=== PATIENT | female | born 1950 | race Caucasian/White ===

== ENCOUNTER 2018-11-22 12:50 | Emergency (ER) | payer MEDICARE ==
[~2018-11-22] VITALS: Ht 162.6 cm; Wt 99.8 kg
[~2018-11-22 12:50] MED LIST: CYCL-97; DULO30CA; DULO30CA48 PO; HYDR-4196 PO; HYDR-623; LEVO125T6; LEVO300T2 PO; LOSA100T16; LOSA100T3 PO; METO100T6 PO; MORP60CA18 PO; MORP90CP PO; MTP50T; NF-CARB200; NF-LOVAZAC; POTA25TA7 PO; SIMV40TA2; SPIR50TA27; TORS20TA3 PO; [UNRECOGNIZED DRUG - CODE]
[2018-11-22 13:33] LABS: BASOPHILS # (AUTO) 0.1 10^3/uL (0.0-0.1); BASOPHILS % (AUTO) 1 % (0-10); EOSINOPHILS # (AUTO) 0.2 10^3/uL (0.0-0.3); EOSINOPHILS % (AUTO) 4 % (0-10); HEMATOCRIT 40 % (35-52); HEMOGLOBIN 12.6 G/DL (11.5-16.0); LYMPHOCYTES % (AUTO) 35 % (12-44); MEAN CORPUSCULAR HEMOGLOBIN 27 PG (25-34); MEAN CORPUSCULAR HGB CONC 32 G/DL (32-36); MEAN CORPUSCULAR VOLUME 86 FL (80-99); MEAN PLATELET VOLUME 10.1 FL (7.4-10.4); MONOCYTES # (AUTO) 0.4 X 10^3 (0.0-1.0); MONOCYTES % (AUTO) 7 % (0-12); NEUTROPHILS % (AUTO) 53 % (42-75); PLATELET COUNT 252 10^3/uL (130-400); RED CELL DISTRIBUTION WIDTH 14.7 % (10.0-14.5); WHITE BLOOD COUNT 5.7 10^3/uL (4.3-11.0)
[2018-11-22 13:45] LABS: BILIRUBIN,URINE NEGATIVE (NEGATIVE); COLOR,URINE YELLOW; GLUCOSE, URINE (UA) NEGATIVE (NEGATIVE); KETONES,URINE NEGATIVE (NEGATIVE); LEUKOCYTE ESTERASE ,URINE 3+ (NEGATIVE); NITRITE,URINE NEGATIVE (NEGATIVE); PH,URINE 6 (5-9); PROTEIN,URINE NEGATIVE (NEGATIVE); UROBILINOGEN,URINE NORMAL (NORMAL)
[2018-11-22 13:48] LABS: PROTHROMBIN TIME PATIENT 13.3 SEC (12.2-14.7)
[2018-11-22 13:52] LABS: BACTERIA,URINE MODERATE /HPF; CLARITY,URINE SLIGHTLY CLOUDY; WBC,URINE 25-50 /HPF
--- NOTE | 2018-11-22 14:01 | ED General ---
General Chief Complaint: Facial Problems Stated Complaint: FACIAL SWELLING;OPEN WOUND;POSS INFECTION Nursing Triage Note: Pt presents to the ED via walker with complaints of facial swelling around the eyes and between the nose x 3 days. Pt denies any fever or chills. There is also pitting edema present in both lower extremities. Pt also has a wound to left calf and reports moderate drainage. Nursing Sepsis Screen: No Definite Risk Source of Information: Patient Exam Limitations: No Limitations History of Present Illness Date Seen by Provider: Nov 22, 2018 Time Seen by Provider: 13:10 Initial Comments Here with report of swelling and redness to the face as well as wound to the left calf area. The redness and swelling to the face started at the area between the brows at the top of the nose and now has spread to encompass both eyes and down the nose. Also encroaches on the forehead. Does report pain with that. Denies fever or chills. Also has wound to the left lower extremity medial aspect after scraping her leg when she fell out of bed last week. At that time her legs are quite swollen but they are actually better now. Patient is supposed to be on Lasix to help with the leg swelling but she takes it intermittently due to the need to self catheter and this is cumbersome when she has to take her Lasix. Denies nausea or vomiting. Timing/Duration: 1 Week, Getting Worse Severity: Moderate Associated Systoms: No Chest Pain, No Cough, No Fever/Chills, No Nausea/Vomiting, No Shortness of Air, No Weakness Allergies and Home Medications Allergies Coded Allergies: Penicillins (Verified Allergy, Unknown, 12/13/08) Sulfa (Sulfonamide Antibiotics) (Verified Allergy, Unknown, 12/13/08) Home Medications Duloxetine HCl 30 Mg Capsule.dr, 90 MG PO DAILY, (Reported) Hydrocodone/Acetaminophen 1 Each Tablet, 2 EACH PO Q6H PRN for PAIN, (Reported) Levothyroxine Sodium 300 Mcg Tablet, 300 MCG PO DAILY, (Reported) Losartan Potassium 100 Mg Tablet, 100 MG PO DAILY, (Reported) Metoprolol Succinate 100 Mg Tab.er.24h, 100 MG PO DAILY, (Reported) Morphine Sulfate 60 Mg Cap.er.pel, 60 MG PO DAILY, (Reported) Morphine Sulfate 90 Mg Cpmp.24hr, 90 MG PO HS, (Reported) Potassium Bicarbonate/Cit AC 25 Meq Tablet.eff, 25 MEQ PO DAILY, (Reported) Torsemide 20 Mg Tablet, 20 MG PO DAILY, (Reported) Patient Home Medication List Home Medication List Reviewed: Yes Review of Systems Review of Systems Constitutional: see HPI; No chills, No fever EENTM: see HPI, nose pain; No ear pain, No eye pain Respiratory: No cough, No short of breath Cardiovascular: No chest pain; edema Gastrointestinal: no symptoms reported Genitourinary: see HPI; No pain Musculoskeletal: back pain (chronic), muscle pain Skin: change in color Psychiatric/Neurological: No Symptoms Reported All Other Systems Reviewed Negative Unless Noted: Yes Past Zihhvpk-Qcjixd-Ijcffh Hx Past Med/Social Hx: Reviewed Nursing Past Med/Soc Hx Patient Social History Alcohol Use: Denies Use Recreational Drug Use: No Smoking Status: Current Everyday Smoker Type Used: Cigarettes Recent Foreign Travel: No Contact w/Someone Who Travel: No Recent Infectious Disease Expo: No Immunizations Up To Date Tetanus Booster (TDap): Unknown Date of Pneumonia Vaccine: Mar 15, 2015 Date of Influenza Vaccine: Mar 15, 2015 Past Medical History Surgeries: Yes Orthopedic Respiratory: No Cardiac: Yes Chronic Edema/Swelling, Hypertension Neurological: No Reproductive Disorders: No Genitourinary: Yes Gastrointestinal: Yes Chronic Constipation Musculoskeletal: Yes Chronic Back Pain, Fractures Endocrine: Yes Hypothyroidsim Anxiety Adverse Reaction/Blood Tranf: No Family Medical History Reviewed Nursing Family Hx No Pertinent Family Hx Physical Exam-Suspected Sepsis Physical Exam Vital Signs Vital Signs - First Documented 11/22/18 13:01 Temp 97.4 Pulse 78 Resp 20 B/P (MAP) 167/79 (108) Pulse Ox 97 O2 Delivery Room Air Capillary Refill : Less Than 3 Seconds Blood Pressure Mean: 108 Height, Weight, BMI Height: 5'4.00" Weight: 220lbs. 10.0oz. 99.110111ln; BMI Method:Stated General Appearance: No Apparent Distress, WD/WN HEENT: PERRL/EOMI, Pharynx Normal, Other (wounds as described below) Neck: Non Tender, Supple Respiratory: Lungs Clear, Normal Breath Sounds Cardiovascular: Regular Rate, Rhythm, No Murmur Gastrointestinal: Non Tender, Soft Extremity: Normal Range of Motion, Non Tender Neurologic/Psychiatric: Alert, Oriented x3, No Motor/Sensory Deficits Skin: warm/dry, other (erythema with swelling surrounding the upper face including the nose, bridge and nose, both brows and both eyes. There is excoriations and wound centrally at the bridge of the nose. Also has 12 x 12 cm area of erythema with central 2 x 3 cm area of wound to the left medial calf.) Focused Exam Lactate Level 11/22/18 13:16: Lactic Acid Level 0.90 Lactic Acid Level Laboratory Tests Test 11/22/18 13:16 Lactic Acid Level 0.90 MMOL/L (0.50-2.00) Progress/Results/Core Measures Suspected Sepsis Recent Fever Within 48 Hours: No Infection Criteria Present: None New/Unexplained Altered Menta: No Sepsis Screen: No Definite Risk SIRS Temperature:97.4 Pulse: 78 Respiratory Rate: 20 Laboratory Tests 11/22/18 13:16: White Blood Count 5.7 Blood Pressure 167 /79 Mean: 108 11/22/18 13:16: Lactic Acid Level 0.90 Laboratory Tests 11/22/18 13:16: Creatinine 0.70, INR Comment 1.0, Platelet Count 252, Total Bilirubin 0.3 Results/Orders Lab Results Laboratory Tests Test 11/22/18 13:16 11/22/18 13:35 Range/Units White Blood Count 5.7 4.3-11.0 10^3/uL Red Blood Count 4.63 4.35-5.85 10^6/uL Hemoglobin 12.6 11.5-16.0 G/DL Hematocrit 40 35-52 % Mean Corpuscular Volume 86 80-99 FL Mean Corpuscular Hemoglobin 27 25-34 PG Mean Corpuscular Hemoglobin Concent 32 32-36 G/DL Red Cell Distribution Width 14.7 H 10.0-14.5 % Platelet Count 252 130-400 10^3/uL Mean Platelet Volume 10.1 7.4-10.4 FL Neutrophils (%) (Auto) 53 42-75 % Lymphocytes (%) (Auto) 35 12-44 % Monocytes (%) (Auto) 7 0-12 % Eosinophils (%) (Auto) 4 0-10 % Basophils (%) (Auto) 1 0-10 % Neutrophils # (Auto) 3.0 1.8-7.8 X 10^3 Lymphocytes # (Auto) 2.0 1.0-4.0 X 10^3 Monocytes # (Auto) 0.4 0.0-1.0 X 10^3 Eosinophils # (Auto) 0.2 0.0-0.3 10^3/uL Basophils # (Auto) 0.1 0.0-0.1 10^3/uL Prothrombin Time 13.3 12.2-14.7 SEC INR Comment 1.0 0.8-1.4 Activated Partial Thromboplast Time 39 H 24-35 SEC Sodium Level 141 135-145 MMOL/L Potassium Level 3.8 3.6-5.0 MMOL/L Chloride Level 104 98-107 MMOL/L Carbon Dioxide Level 28 21-32 MMOL/L Anion Gap 9 5-14 MMOL/L Blood Urea Nitrogen 12 7-18 MG/DL Creatinine 0.70 0.60-1.30 MG/DL Estimat Glomerular Filtration Rate > 60 BUN/Creatinine Ratio 17 Glucose Level 81 70-105 MG/DL Lactic Acid Level 0.90 0.50-2.00 MMOL/L Calcium Level 9.4 8.5-10.1 MG/DL Corrected Calcium 9.4 8.5-10.1 MG/DL Total Bilirubin 0.3 0.1-1.0 MG/DL Aspartate Amino Transf (AST/SGOT) 14 5-34 U/L Alanine Aminotransferase (ALT/SGPT) 9 0-55 U/L Alkaline Phosphatase 90 40-136 U/L C-Reactive Protein High Sensitivity 1.89 H 0.00-0.50 MG/DL Total Protein 6.7 6.4-8.2 GM/DL Albumin 4.0 3.2-4.5 GM/DL Thyroid Stimulating Hormone (TSH) 1.42 0.35-4.94 UIU/ML Urine Color YELLOW Urine Clarity SLIGHTLY CLOUDY Urine pH 6 5-9 Urine Specific [place] 1.020 1.016-1.022 Urine Protein NEGATIVE NEGATIVE Urine Glucose (UA) NEGATIVE NEGATIVE Urine Ketones NEGATIVE NEGATIVE Urine Nitrite NEGATIVE NEGATIVE Urine Bilirubin NEGATIVE NEGATIVE Urine Urobilinogen NORMAL NORMAL MG/DL Urine Leukocyte Esterase 3+ H NEGATIVE Urine RBC (Auto) NEGATIVE NEGATIVE Urine RBC NONE /HPF Urine WBC 25-50 H /HPF Urine Squamous Epithelial Cells 10-25 H /HPF Urine Crystals NONE /LPF Urine Bacteria MODERATE H /HPF Urine Casts NONE /LPF Urine Mucus NEGATIVE /LPF Urine Culture Indicated CULTURE PENDING My Orders Orders - ARIK PRASAD MD Cbc With Automated Diff (11/22/18 13:22) Comprehensive Metabolic Panel (11/22/18 13:22) Blood Culture (11/22/18 13:22) Sputum Culture (11/22/18 13:22) Urinalysis (11/22/18 13:22) Urine Culture (11/22/18 13:22) Protime With Inr (11/22/18 13:22) Partial Thromboplastin Time (11/22/18 13:22) Chest 1 View, Ap/Pa Only (11/22/18 13:22) Ed Iv/Invasive Line Start (11/22/18 13:22) Vital Signs Adult Sepsis Patie Q15M (11/22/18 13:22) O2 (11/22/18 13:22) Remove Rings In Anticipation O (11/22/18 13:22) Wound Culture (11/22/18 13:22) Lactic Acid Analyzer (11/22/18 13:22) Thyroid Stimulating Hormone (11/22/18 13:26) Hs C Reactive Protein (11/22/18 13:49) Ct Maxillofacial Wo (11/22/18 14:37) Ceftriaxone For Iv Use (Rocephin For I (11/22/18 14:45) Medications Given in ED Current Medications Medications Dose Ordered Sig/Kristen Route Start Time Stop Time Status Last Admin Dose Admin Ceftriaxone Sodium 1000 mg/ Sterile Water 10 ml @ 200 mls/hr ONCE ONCE IV 11/22/18 14:45 11/22/18 14:47 DC 11/22/18 15:01 200 MLS/HR Vital Signs/I&O 11/22/18 11/22/18 13:01 13:59 Temp 97.4 99.1 Pulse 78 78 Resp 20 18 B/P (MAP) 167/79 (108) 167/79 Pulse Ox 97 97 O2 Delivery Room Air Room Air Capillary Refill : Less Than 3 Seconds Blood Pressure Mean: 108 Progress Note : Progress Note Seen and evaluated. IV, labs, blood cultures, UA and chest x-ray ordered. We will initiate sepsis protocol. Wound culture obtained from left calf wound. Patient is not currently in distress. Consider CT of the face based on labs. Monitor patient. 1551 CT complete. Rocephin 1 g IV given. Patient overall doing better and without complaint. Labs reviewed with patient and family. At this point we will initiate outpatient antibiotic therapy both oral and topical call with return precautions given. Discharged home with return precautions. Patient and family verbalize understanding instructions and agreement with plan. Diagnostic Imaging Diagonstic Imaging: CT Plain Films/CT/US/NM/MRI: other (maxillofacial) Comments No evidence of deep abscess or preorbital cellulitis. Does appear to have cellulitic type findings superficially as discussed with the radiologist. Reviewed: Discussed w/Radiologist Departure Impression Primary Impression: Cellulitis of face Additional Impression: Cellulitis of left lower extremity without foot Disposition: HOME, SELF-CARE Condition: Stable Departure-Patient Inst. Decision time for Depature: 15:52 Referrals: TRENA GREGORY MD (PCP/Family) Primary Care Physician Patient Instructions: Cellulitis (Skin Infection), Adult (DC) Add. Discharge Instructions: All discharge instructions reviewed with patient and/or family. Voiced understanding. Use mupirocin ointment twice daily over areas of concern for the next week. Take medications as directed. Return for worse pain, swelling, fever, increasing redness, vision changes or pain or other concerns as needed. Follow-up with your later this week for recheck and further evaluation. Scripts Mupirocin (Mupirocin) 22 Gm Oint...g. 1 APPLIC TP UD, #1 TUBE 0 Refills Apply lightly to affected areas twice daily Prov: ARIK PRASAD MD 11/22/18 Clindamycin HCl (Clindamycin HCl) 300 Mg Capsule 300 MG PO QID, #28 CAP 0 Refills Prov: ARIK PRASAD MD 11/22/18 ARIK PRASAD MD Nov 22, 2018 14:01
[2018-11-22 14:02] LABS: ALANINE AMINOTRANSFERASE 9 U/L (0-55); ALKALINE PHOSPHATASE 90 U/L (40-136); BILIRUBIN,TOTAL 0.3 MG/DL (0.1-1.0); BUN/CREATININE RATIO 17; CALCIUM 9.4 MG/DL (8.5-10.1); CARBON DIOXIDE 28 MMOL/L (21-32); CHLORIDE 104 MMOL/L (98-107); GFR ESTIMATED > 60; GLUCOSE 81 MG/DL (70-105); POTASSIUM 3.8 MMOL/L (3.6-5.0); SODIUM 141 MMOL/L (135-145); TOTAL PROTEIN 6.7 GM/DL (6.4-8.2)
--- NOTE | 2018-11-22 14:12 | Diagnostic Imaging Report ---
INDICATION: Swelling, edema. COMPARISON: March 28, 2015. TECHNIQUE: Single frontal radiograph of the chest dated November 22, 2018. FINDINGS: The cardiac silhouette is borderline enlarged. Mild central pulmonary vascular congestion, appearing more prominent than the prior examination. Minimal pulmonary interstitial prominence with a few Viraj B line is identified within the left lung base. No additional focal pulmonary opacity. No significant pleural effusion. No pneumothorax. Plate and screw fixation of the left clavicle. Scattered osseous degenerative changes, particularly involving the left shoulder. No acute osseous abnormality. IMPRESSION: Mild congestive heart failure/volume overload with associated minimal interstitial edema. No significant pleural effusion. Dictated by: Dictated on workstation # [id number]
[2018-11-22] MEDS ORDERED: cefTRIAXone FOR IV USE 1,000 MG in WATER (STERILE) FOR INJECTION 10 ML IV ONE (14:45)
--- NOTE | 2018-11-22 15:55 | Diagnostic Imaging Report ---
PROCEDURE: CT maxillofacial without contrast. TECHNIQUE: Multiple contiguous axial images were obtained through the facial bones without the use of intravenous contrast. Auto Exposure Controls were utilized during the CT exam to meet ALARA standards for radiation dose reduction. INDICATION: Facial swelling.. COMPARISON: There are no prior studies available for comparison. FINDINGS: There is generalized edema/inflammation of the soft tissues over each orbital rim, the nasal bone and the orbits, particularly on the left. There is no sign of a soft tissue abscess and these findings are probably secondary to cellulitis. The globes, extraocular muscles and optic nerves appear symmetrical. There is no sign of a retrobulbar mass. The bone windows show no sign of a fracture or of a destructive lesion. The sinuses are generally clear. There is minimal mucosal thickening of the ethmoid sinuses and a small area of mucosal thickening of the left frontal sinus. The intracranial contents, where visualized, are unremarkable. IMPRESSION: 1. There is generalized edema/inflammation of the soft tissues over the orbits and nasal bone. This appearance does suggest cellulitis. There is no discrete mass or abscess visualized. 2. There is minimal bilateral ethmoid and mild left frontal sinusitis. 2. There is no acute abnormality identified otherwise. These results were discussed with Dr. Winters in the ER. Dictated by: Dictated on workstation # [id number]
[2018-11-22] MEDS ORDERED: MUPI22OI2 TP (15:58)
[2018-11-22] MEDS ORDERED: CLIN300C11 PO (15:58)
[2018-11-22 16:04] VITALS: BP 171/82
--- OUTSIDE RECORDS SUMMARY | 2018-11-22 23:06 | XMS REPORT ---
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 Apr, Active 480058815 Problem Bladder retention R33.9 Apr, Active 037995976 Problem Failed back syndrome M96.1 Feb, Active 16108766 Problem HLD (hyperlipidemia) E78.5 Jan, Active 33145243 Problem Low back pain radiating to both legs M54.5 Apr, Active 560476075 Problem Osteoarthritis of glenohumeral joint, left M19.012 Apr, Active 920756538 Problem Greater trochanteric bursitis of right hip M70.61 Apr, Active 64336116 Problem DDD (degenerative disc disease), lumbar M51.36 Feb, Active 25342748 Problem Right sided sciatica M54.31 Feb, Active 09573675 Problem Chronic pain G89.29 Jan, Active 24387129 Problem Primary insomnia F51.01 Active 2640198 Problem Cigarette nicotine dependence, uncomplicated F17.210 Mar, Active 774596768 Problem Posterior tibialis tendon insufficiency M21.40 Oct, Active 72508671 Problem Essential (primary) hypertension I10 Active 60769181 Problem Lumbar post-laminectomy syndrome M96.1 Apr, Active 752173849 Problem Closed fracture of radius S52.90XA Oct, Active 576665954 Problem Planovalgus deformity of foot, acquired M21.6X9 Oct, Active 275403742837340 Problem Chronic back pain M54.9 Apr, Active 068626016 Problem HTN (hypertension) I10 Jan, Active 03143300 Problem Hypothyroidism E03.9 Jan, Active 69015041 Problem Tobacco use Z72.0 Mar, Active 734915524 ALLERGIES No Information ENCOUNTERS Encounter Location Date Diagnosis [facility] [address] [address] Nov, [facility] [place] [address] [address] Aug, [facility] [place] [address] [address] Aug, [facility] [place] [address] [address] Aug, [facility] [address] [place] [address] Aug, HTN (hypertension) 401.9 ; Morbid obesity E66.01 ; Essential (primary) hypertension I10 ; Low back pain radiating to both legs M54.5 ; Failed back syndrome M96.1 ; HLD (hyperlipidemia) E78.5 and Primary insomnia F51.01 [facility] [address] [address] Aug, [facility] [place] [address] [address] Aug, [facility] [place] [address] [address] Aug, [facility] [place] [address] [address] Jul, [facility] [address] [place] [address] Jul, [facility] [place] [address] [address] Jul, [facility] [place] [address] [address] Jul, [facility] [address] [place] [address] Jun, [facility] [place] [address] [address] Jun, [facility] [address] [place] [address] May, [facility] [address] [place] [address] Apr, [facility] [address] [place] [address] Apr, [facility] [address] [place] [address] Apr, [facility] [address] [place] [address] Apr, [facility] [address] [place] [address] Jan, [facility] [address] [place] [address] Mar, [facility] [id number] [address] Mar, IMMUNIZATIONS No Known Immunizations SOCIAL HISTORY Never Assessed REASON FOR VISIT Requests return call-[facility] PLAN OF CARE VITAL SIGNS MEDICATIONS Unknown Medications RESULTS No Results PROCEDURES No Known procedures INSTRUCTIONS MEDICATIONS ADMINISTERED No Known Medications
--- OUTSIDE RECORDS SUMMARY | 2018-11-22 23:07 | XMS REPORT | Continuity of Care Document ---
Author Organization Unknown Address Unknown Allergies Active Description Code Type Severity Reaction Onset Reported/Identified Relationship to Patient Clinical Status Yes Penicillins [id number] Drug Allergy Unknown N/A 12/13/2008 Yes Sulfa (Sulfonamide Antibiotics) [id number] Drug Allergy Unknown N/A 12/13/2008 Medications There is no data. Problems Date Dx Coded Attending Type Code Diagnosis Diagnosed By 03/29/2015 MCGUIRE DO, HAILEY K Ot E03.9 03/29/2015 MCGUIRE DO, HAILEY K Ot E66.9 03/29/2015 MCGUIRE DO, HAILEY K Ot E78.5 03/29/2015 MCGUIRE DO, HAILEY K Ot F17.210 03/29/2015 MCGUIRE DO, HAILEY K Ot F41.9 03/29/2015 MCGUIRE DO, HAILEY K Ot G89.29 03/29/2015 MCGUIRE DO, HAILEY K Ot I10 03/29/2015 MCGUIRE DO, HAILEY K Ot R07.9 03/29/2015 MCGUIRE DO, HAILEY K Ot R09.02 03/29/2015 MCGUIRE DO, HAILEY K Ot E03.9 03/29/2015 MCGUIRE DO, HAILEY K Ot E66.9 03/29/2015 MCGUIRE DO, HAILEY K Ot E78.5 03/29/2015 MCGUIRE DO, HAILEY K Ot F17.210 03/29/2015 MCGUIRE DO, HAILEY K Ot F41.9 03/29/2015 MCGUIRE DO, HAILEY K Ot G89.29 03/29/2015 MCGUIRE DO, HAILEY K Ot I10 03/29/2015 MCGUIRE DO, HAILEY K Ot R07.9 03/29/2015 MCGUIRE DO, HAILEY K Ot R09.02 Procedures There is no data. Results Test Result Range CULTURE, URINE - 09/14/18 15:32 CULTURE, URINE, ROUTINE NRG PDM - PAIN MGMT (PROFILE 3 WITH CONFIRMATION) - 11/09/18 17:37 Creatinine 29.4 mg/dL > or=20.0 pH 6.90 4.5 - 9.0 Oxidant NEGATIVE mcg/mL <200 Amphetamines NEGATIVE ng/mL <500 medMATCH Amphetamines CONSISTENT NRG Benzodiazepines NEGATIVE CONFIRMED ng/mL <100 Marijuana Metabolite NEGATIVE ng/mL <20 medMATCH Marijuana Metab CONSISTENT NRG Cocaine Metabolite NEGATIVE ng/mL <150 medMATCH Cocaine Metab CONSISTENT NRG Opiates POSITIVE ng/mL <100 Oxycodone NEGATIVE ng/mL <100 medMATCH Oxycodone CONSISTENT NRG COMMENT NRG Alphahydroxyalprazolam NEGATIVE ng/mL <25 medMATCH aOH alprazolam CONSISTENT NRG Alphahydroxymidazolam NEGATIVE ng/mL <50 medMATCH aOH midazolam CONSISTENT NRG Alphahydroxytriazolam NEGATIVE ng/mL <50 medMATCH aOH triazolam CONSISTENT NRG Aminoclonazepam NEGATIVE ng/mL <25 medMATCH Aminoclonazepam CONSISTENT NRG Hydroxyethylflurazepam NEGATIVE ng/mL <50 medMATCH OH,Et flurazepam CONSISTENT NRG Lorazepam NEGATIVE ng/mL <50 medMATCH Lorazepam CONSISTENT NRG Nordiazepam NEGATIVE ng/mL <50 medMATCH Nordiazepam CONSISTENT NRG Oxazepam NEGATIVE ng/mL <50 medMATCH Oxazepam CONSISTENT NRG Temazepam NEGATIVE ng/mL <50 medMATCH Temazepam CONSISTENT NRG Codeine NEGATIVE ng/mL <50 medMATCH Codeine CONSISTENT NRG Hydrocodone NEGATIVE ng/mL <50 medMATCH Hydrocodone CONSISTENT NRG Hydromorphone 73 ng/mL <50 medMATCH Hydromorphone CONSISTENT NRG Morphine >56399 ng/mL <50 medMATCH Morphine CONSISTENT NRG Norhydrocodone NEGATIVE ng/mL <50 medMATCH Norhydrocodone CONSISTENT NRG Prescribed Drug 2 MS Contin(TM) NRG Prescribed Drug 3 Hydrocodone NRG Prescribed Drug 4 Tramadol NRG Complete blood count (CBC) with automated white blood cell (WBC) differential - 11/22/18 13:16 Blood leukocytes automated count (number/volume) 5.7 10*3/uL 4.3-11.0 Blood erythrocytes automated count (number/volume) 4.63 10*6/uL 4.35-5.85 Venous blood hemoglobin measurement (mass/volume) 12.6 g/dL 11.5-16.0 Blood hematocrit (volume fraction) 40 % 35-52 Automated erythrocyte mean corpuscular volume 86 [foz_us] 80-99 Automated erythrocyte mean corpuscular hemoglobin (mass per erythrocyte) 27 pg 25-34 Automated erythrocyte mean corpuscular hemoglobin concentration measurement (mass/volume) 32 g/dL 32-36 Automated erythrocyte distribution width ratio 14.7 % 10.0- 14.5 Automated blood platelet count (count/volume) 252 10*3/uL 130-400 Automated blood platelet mean volume measurement 10.1 [foz_us] 7.4-10.4 Automated blood neutrophils/100 leukocytes 53 % 42-75 Automated blood lymphocytes/100 leukocytes 35 % 12-44 Blood monocytes/100 leukocytes 7 % 0-12 Automated blood eosinophils/100 leukocytes 4 % 0-10 Automated blood basophils/100 leukocytes 1 % 0-10 Blood neutrophils automated count (number/volume) 3.0 10*3 1.8-7.8 Blood lymphocytes automated count (number/volume) 2.0 10*3 1.0-4.0 Blood monocytes automated count (number/volume) 0.4 10*3 0.0- 1.0 Automated eosinophil count 0.2 10*3/uL 0.0-0.3 Automated blood basophil count (count/volume) 0.1 10*3/uL 0.0-0.1 PT panel in platelet poor plasma by coagulation assay - 11/22/18 13:16 Prothrombin time (PT) in platelet poor plasma by coagulation assay 13.3 s 12.2-14.7 INR in platelet poor plasma or blood by coagulation assay 1.0 0.8-1.4 Activated partial thromboplastin time (aPTT) in platelet poor plasma bycoagulation assay - 11/22/18 13:16 Activated partial thromboplastin time (aPTT) in platelet poor plasma bycoagulation assay 39 s 24-35 Blood lactic acid measurement (moles/volume) - 11/22/18 13:16 Blood lactic acid measurement (moles/volume) 0.90 mmol/L 0.50- 2.00 Comprehensive metabolic panel - 11/22/18 13:16 Serum or plasma sodium measurement (moles/volume) 141 mmol/L 135-145 Serum or plasma potassium measurement (moles/volume) 3.8 mmol/L 3.6-5.0 Serum or plasma chloride measurement (moles/volume) 104 mmol/L 98-107 Carbon dioxide 28 mmol/L 21-32 Serum or plasma anion gap determination (moles/volume) 9 mmol/L 5-14 Serum or plasma urea nitrogen measurement (mass/volume) 12 mg/dL 7-18 Serum or plasma creatinine measurement (mass/volume) 0.70 mg/dL 0.60-1.30 Serum or plasma urea nitrogen/creatinine mass ratio 17 NRG Serum or plasma creatinine measurement with calculation of estimated glomerular filtration rate > NRG Serum or plasma glucose measurement (mass/volume) 81 mg/dL 70-105 Serum or plasma calcium measurement (mass/volume) 9.4 mg/dL 8.5-10.1 Serum or plasma total bilirubin measurement (mass/volume) 0.3 mg/dL 0.1-1.0 Serum or plasma alkaline phosphatase measurement (enzymatic activity/volume) 90 U/L 40-136 Serum or plasma aspartate aminotransferase measurement (enzymatic activity/volume) 14 U/L 5-34 Serum or plasma alanine aminotransferase measurement (enzymatic activity/volume) 9 U/L 0-55 Serum or plasma protein measurement (mass/volume) 6.7 g/dL 6.4-8.2 Serum or plasma albumin measurement (mass/volume) 4.0 g/dL 3.2-4.5 CALCIUM CORRECTED 9.4 mg/dL 8.5-10.1 Serum or plasma C reactive protein measurement (mass/volume) - 11/22/18 13:16 Serum or plasma C reactive protein measurement (mass/volume) 1.89 mg/dL 0.00-0.50 THYROID STIMULATING HORMONE - 11/22/18 13:16 THYROID STIMULATING HORMONE 1.42 u[iU]/mL 0.35-4.94 Complete urinalysis with reflex to culture - 11/22/18 13:35 Urine color determination YELLOW NRG Urine clarity determination SLIGHTLY CLOUDY NRG Urine pH measurement by test strip 6 5-9 Specific gravity of urine by test strip 1.020 1.016-1.022 Urine protein assay by test strip, semi-quantitative NEGATIVE NEGATIVE Urine glucose detection by automated test strip NEGATIVE NEGATIVE Erythrocytes detection in urine sediment by light microscopy NEGATIVE NEGATIVE Urine ketones detection by automated test strip NEGATIVE NEGATIVE Urine nitrite detection by test strip NEGATIVE NEGATIVE Urine total bilirubin detection by test strip NEGATIVE NEGATIVE Urine urobilinogen measurement by automated test strip (mass/volume) NORMAL NORMAL Urine leukocyte esterase detection by dipstick 3+ NEGATIVE Automated urine sediment erythrocyte count by microscopy (number/high power field) NONE NRG Automated urine sediment leukocyte count by microscopy (number/high power field) [HPF] NRG Bacteria detection in urine sediment by light microscopy MODERATE NRG Squamous epithelial cells detection in urine sediment by light microscopy 10-25 NRG Crystals detection in urine sediment by light microscopy NONE NRG Casts detection in urine sediment by light microscopy NONE NRG Mucus detection in urine sediment by light microscopy NEGATIVE NRG Complete urinalysis with reflex to culture CULTURE PENDING NRG Encounters ACCT No. Visit Date/Time Discharge Status Pt. Type Provider Facility Loc./Unit Complaint [id number] 11/09/2018 17:40:00 11/09/2018 23:59:59 [facility] Outpatient TRENA GREGORY [id number] 11/09/2018 17:40:00 Document Registration [id number] 09/14/2018 13:45:00 Document Registration [id number] 03/28/2015 21:40:00 03/29/2015 12:39:00 DIS Inpatient HAILEY MCGUIRE DO [facility] [id number] 11/22/2018 13:34:00 Document Registration
[2018-11-26] MEDS ORDERED: DOXY100C2 PO (13:07)
[2018-11-26] MEDS ORDERED: CEPH500T PO (13:07)
== END 2018-11-22 16:04 | disposition home or self-care (01) ==
LOC: EDUNIT# 12:50 → ER 12:51
DX: L03.211 Cellulitis of face (principal); L03.116 Cellulitis of left lower limb; I10 Essential (primary) hypertension; E03.9 Hypothyroidism, unspecified; F41.9 Anxiety disorder, unspecified; F17.210 Nicotine dependence, cigarettes, uncomplicated; Z87.19 Personal history of other diseases of the digestive system; Z88.0 Allergy status to penicillin; Z88.2 Allergy status to sulfonamides
CPT/HCPCS: 36415; 70486; 71045; 80053; 81000; 83605; 84443; 85025; 85610; 85730; 86141; 87040; 87070; 87077; 87088; 87186; 87205; 96374

== ENCOUNTER 2018-11-25 21:31 | Observation (INO) | payer MEDICARE ==
[~2018-11-25] VITALS: Ht 162.6 cm; Wt 100.1 kg
[~2018-11-25 21:31] MED LIST changes: +CLIN300C11 PO; -DULO30CA48 PO; +DULO30CA49 PO; +MUPI22OI2 TP
--- NOTE | 2018-11-25 21:42 | ED EENT ---
History of Present Illness General Stated Complaint: EYES SWOLLEN Source: patient Exam Limitations: no limitations History of Present Illness Date Seen by Provider: Nov 25, 2018 Time Seen by Provider: 21:38 Initial Comments This patient of Dr. Hernández presents to ER with reports of facial cellulitis. She was seen here 3 days ago and diagnosed with this. It appeared at that time as though she had impetigo with secondary cellulitis. This was primarily between the nose and some erythema surrounding each eye. She was put on clindamycin and topical mupirocin, she's not noticed much improvement, although no real worsening either. No fevers or chills. Has some periorbital edema and erythema, still has the wound between the eyes Timing/Duration: other Severity: moderate Location: facial Associated Symptoms: denies symptoms Allergies and Home Medications Allergies Coded Allergies: Penicillins (Verified Allergy, Unknown, 12/13/08) Sulfa (Sulfonamide Antibiotics) (Verified Allergy, Unknown, 12/13/08) Home Medications Atorvastatin Calcium 10 Mg Tablet, 10 MG PO HS, (Reported) LAST FILLED 04-19-18 #90 Cephalexin 500 Mg Tablet, 500 MG PO QID Prescribed by: POPEYE OSHEA on 11/26/18 1307 Cyclobenzaprine HCl 10 Mg Tablet, 10 MG PO TID PRN for MUSCLE SPASMS, (Reported) Doxycycline Hyclate 100 Mg Capsule, 100 MG PO BID Prescribed by: POPEYE OSHEA on 11/26/18 1307 Duloxetine HCl 30 Mg Capsule.dr, 90 MG PO DAILY, (Reported) LAST FILLED #270 07-30-18 TAKES 3 (30MG) CAPSULES Famotidine 20 Mg Tablet, 20 MG PO DAILY PRN for HEARTBURN, (Reported) Gabapentin 300 Mg Capsule, 900 MG PO HS, (Reported) Hydrocodone/Acetaminophen 1 Each Tablet, 1 TAB PO BID PRN for PAIN-MODERATE, (Reported) Levothyroxine Sodium 75 Mcg Tablet, 75 MCG PO DAILY, (Reported) TAKES ALONG WITH 200MCG TABLET Levothyroxine Sodium 200 Mcg Tablet, 200 MCG PO DAILY, (Reported) TAKES ALONG WITH 75MCG TABLET Losartan Potassium 100 Mg Tablet, 100 MG PO DAILY, (Reported) Metoprolol Succinate 100 Mg Tab.er.24h, 100 MG PO DAILY, (Reported) Morphine Sulfate 30 Mg Tablet.er, 60 MG PO TID, (Reported) TAKES 2 (30MG) TABLETS Mupirocin 22 Gm Oint...g., TP BID, (Reported) [place]-3 Fatty Acids/Fish Oil 1 Each Capsule, 1,000 MG PO BID, (Reported) Potassium Chloride 20 Meq Tablet.er, 20 MEQ PO DAILY PRN for WHEN TAKING TORSEMIDE, (Reported) LAST FILLED #90 2014 Ropinirole HCl 0.5 Mg Tablet, 1 MG PO HS PRN for RESTLESS LEGS, (Reported) TAKES 2 (0.5MG) TABLETS Ropinirole HCl 0.5 Mg Tablet, 0.5 MG PO DAILY PRN for RESTLESS LEGS, (Reported) Torsemide 20 Mg Tablet, 20 MG PO DAILY PRN for SWELLING, (Reported) LAST FILLED #180 2014 Tramadol HCl 50 Mg Tablet, 50 MG PO Q6H PRN for PAIN-BREAKTHROUGH, (Reported) Zolpidem Tartrate 10 Mg Tablet, 5-10 MG PO HS PRN for SLEEP, (Reported) Patient Home Medication List Home Medication List Reviewed: Yes Review of Systems Review of Systems Constitutional: see HPI Eyes: See HPI Ears: No Symptoms Reported Nose: no symptoms reported Mouth: no symptoms reported Throat: no symptoms reported Respiratory: no symptoms reported Cardiovascular: no symptoms reported Gastrointestinal: no symptoms reported Past Ndvlgvk-Rxunir-Hejzcl Hx Patient Social History Type Used: Cigarettes Recent Foreign Travel: No Contact w/Someone Who Travel: No Immunizations Up To Date Tetanus Booster (TDap): Unknown Date of Pneumonia Vaccine: Mar 15, 2015 Date of Influenza Vaccine: Mar 15, 2015 Past Medical History Surgeries: Yes Orthopedic Respiratory: No Cardiac: Yes Chronic Edema/Swelling, Hypertension Neurological: No Reproductive Disorders: No Genitourinary: Yes Gastrointestinal: Yes Chronic Constipation Musculoskeletal: Yes Chronic Back Pain, Fractures Endocrine: Yes Hypothyroidsim Anxiety Adverse Reaction/Blood Tranf: No Family Medical History No Pertinent Family Hx Physical Exam Vital Signs Vital Signs - First Documented 11/25/18 21:31 Temp 97.2 Pulse 73 Resp 20 B/P (MAP) 167/72 (103) Pulse Ox 97 O2 Delivery Room Air Height, Weight, BMI Height: 5'4.00" Weight: 220lbs. 10.0oz. 99.047479vr; BMI Method:Stated General Appearance: WD/WN, no apparent distress Eyes: bilateral eye normal inspection, bilateral eye PERRL, bilateral eye EOMI, bilateral eye other (normal werner of gaze, no scleral injection or conjunctival inflammation. There is periorbital edema and erythema bilaterally with some erythema between the eyebrows, some honey colored crusts on the skin in this area. No drainable abscess is seen.) Ears: bilateral ear auricle normal, bilateral ear canal normal, bilateral ear TM normal Mouth/Throat: normal mouth inspection Neck: non-tender, full range of motion Respiratory: no respiratory distress, no accessory muscle use Gastrointestinal: non tender, soft Neurologic/Psychiatric: alert, normal mood/affect, oriented x 3 Progress/Results/Core Measures Results/Orders Lab Results Laboratory Tests Test 11/25/18 21:51 Range/Units White Blood Count 6.7 4.3-11.0 10^3/uL Red Blood Count 4.45 4.35-5.85 10^6/uL Hemoglobin 12.1 11.5-16.0 G/DL Hematocrit 39 35-52 % Mean Corpuscular Volume 87 80-99 FL Mean Corpuscular Hemoglobin 27 25-34 PG Mean Corpuscular Hemoglobin Concent 31 L 32-36 G/DL Red Cell Distribution Width 14.9 H 10.0-14.5 % Platelet Count 247 130-400 10^3/uL Mean Platelet Volume 10.5 H 7.4-10.4 FL Neutrophils (%) (Auto) 58 42-75 % Lymphocytes (%) (Auto) 28 12-44 % Monocytes (%) (Auto) 10 0-12 % Eosinophils (%) (Auto) 4 0-10 % Basophils (%) (Auto) 1 0-10 % Neutrophils # (Auto) 3.9 1.8-7.8 X 10^3 Lymphocytes # (Auto) 1.9 1.0-4.0 X 10^3 Monocytes # (Auto) 0.7 0.0-1.0 X 10^3 Eosinophils # (Auto) 0.3 0.0-0.3 10^3/uL Basophils # (Auto) 0.1 0.0-0.1 10^3/uL Sodium Level 139 135-145 MMOL/L Potassium Level 4.7 3.6-5.0 MMOL/L Chloride Level 103 98-107 MMOL/L Carbon Dioxide Level 25 21-32 MMOL/L Anion Gap 11 5-14 MMOL/L Blood Urea Nitrogen 16 7-18 MG/DL Creatinine 0.70 0.60-1.30 MG/DL Estimat Glomerular Filtration Rate > 60 BUN/Creatinine Ratio 23 Glucose Level 84 70-105 MG/DL Calcium Level 9.0 8.5-10.1 MG/DL Corrected Calcium 9.2 8.5-10.1 MG/DL Total Bilirubin 0.3 0.1-1.0 MG/DL Aspartate Amino Transf (AST/SGOT) 14 5-34 U/L Alanine Aminotransferase (ALT/SGPT) 6 0-55 U/L Alkaline Phosphatase 82 40-136 U/L Total Protein 6.5 6.4-8.2 GM/DL Albumin 3.8 3.2-4.5 GM/DL My Orders Orders - NENITA CACERES APRN Cbc With Automated Diff (11/25/18 21:35) Comprehensive Metabolic Panel (11/25/18 21:35) Ed Iv/Invasive Line Start (11/25/18 21:35) Cefazolin Injection (Ancef Injection) (11/25/18 22:30) Vital Signs/I&O 11/25/18 21:31 Temp 97.2 Pulse 73 Resp 20 B/P (MAP) 167/72 (103) Pulse Ox 97 O2 Delivery Room Air Departure Communication (Admissions) Time/Spoke to Admitting Phy: 22:[address] Oshea, we'll admit on Ancef and vancomycin given the failure to improve on outpatient regimen Impression Primary Impression: Preseptal cellulitis Additional Impressions: Impetigo failure of outpatient therapy Disposition: ADMITTED INPATIENT Condition: Stable Admissions Decision to Admit Reason: Admit from ER (General) Decision to Admit/Date: Nov 25, 2018 Time/Decision to Admit Time: 22:42 Departure-Patient Inst. Referrals: TRENA GREGORY MD (PCP/Family) Primary Care Physician Scripts Cephalexin (Cephalexin) 500 Mg Tablet 500 MG PO QID, #28 TAB 0 Refills Prov: POPEYE OSHEA MD 11/26/18 Doxycycline Hyclate (Doxycycline Hyclate) 100 Mg Capsule 100 MG PO BID, #14 CAP 0 Refills Prov: POPEYE OSHEA MD 11/26/18 Images Head/Face 1 - NENITA CACERES APRN Nov 25, 2018 21:42
[2018-11-25 22:20] LABS: BASOPHILS # (AUTO) 0.1 10^3/uL (0.0-0.1); BASOPHILS % (AUTO) 1 % (0-10); EOSINOPHILS # (AUTO) 0.3 10^3/uL (0.0-0.3); EOSINOPHILS % (AUTO) 4 % (0-10); HEMATOCRIT 39 % (35-52); HEMOGLOBIN 12.1 G/DL (11.5-16.0); LYMPHOCYTES # (AUTO) 1.9 X 10^3 (1.0-4.0); LYMPHOCYTES % (AUTO) 28 % (12-44); MEAN CORPUSCULAR HEMOGLOBIN 27 PG (25-34); MEAN CORPUSCULAR HGB CONC 31 G/DL (32-36); MEAN CORPUSCULAR VOLUME 87 FL (80-99); MEAN PLATELET VOLUME 10.5 FL (7.4-10.4); MONOCYTES # (AUTO) 0.7 X 10^3 (0.0-1.0); MONOCYTES % (AUTO) 10 % (0-12); NEUTROPHILS # (AUTO) 3.9 X 10^3 (1.8-7.8); NEUTROPHILS % (AUTO) 58 % (42-75); PLATELET COUNT 247 10^3/uL (130-400); RED CELL DISTRIBUTION WIDTH 14.9 % (10.0-14.5); WHITE BLOOD COUNT 6.7 10^3/uL (4.3-11.0)
[2018-11-25] MEDS ORDERED: ceFAZolin INJECTION 1,000 MG in WATER (STERILE) FOR INJECTION 10 ML IV ONE (22:30)
[2018-11-25 22:34] LABS: ALANINE AMINOTRANSFERASE 6 U/L (0-55); ALBUMIN 3.8 GM/DL (3.2-4.5); ALKALINE PHOSPHATASE 82 U/L (40-136); BILIRUBIN,TOTAL 0.3 MG/DL (0.1-1.0); BUN/CREATININE RATIO 23; CARBON DIOXIDE 25 MMOL/L (21-32); CHLORIDE 103 MMOL/L (98-107); GFR ESTIMATED > 60; GLUCOSE 84 MG/DL (70-105); POTASSIUM 4.7 MMOL/L (3.6-5.0); SODIUM 139 MMOL/L (135-145); TOTAL PROTEIN 6.5 GM/DL (6.4-8.2)
[2018-11-26 00:44] VITALS: BP 187/75
[2018-11-26 01:30] VITALS: BP 187/75
[2018-11-26] MEDS ORDERED: morphine ER 30 MG (MS CONTIN) TAB PO SCH ×2 (01:30→09:00)
[2018-11-26] MEDS ORDERED: ONDANSETRON 4 MG/2 ML (SDV) Z0FRAN IV PRN (01:45)
[2018-11-26] MEDS ORDERED: IBUPROFEN 600 MG (MOTRIN) TAB PO PRN (01:45)
[2018-11-26] MEDS ORDERED: VANCOMYCIN INJECTION 1GM (OMNI 250 ML IV ONE (02:01)
[2018-11-26] MEDS ORDERED: RT-ALBUTEROL/IPRATROPIUM 3 ML (DUONEB) VIAL INH PRN (02:15)
[2018-11-26] MEDS: VANCOMYCIN 1 GM/NS 250 ML IVPB IV SCH ×4 (02:31→13:10)
[2018-11-26 04:10] VITALS: BP 158/73
[2018-11-26] MEDS: ceFAZolin 1,000 MG/SWFI 10 ML IV PUSH IV SCH ×4 (05:42→14:21)
[2018-11-26 08:00] VITALS: BP 136/74
[2018-11-26] MEDS ORDERED: CLIN300C11 PO (08:31)
[2018-11-26] MEDS ORDERED: METO-395 PO (08:31)
[2018-11-26] MEDS ORDERED: MUPI22OI2 TP (08:31)
[2018-11-26] MEDS ORDERED: LOSA100T57 PO (08:31)
[2018-11-26] MEDS ORDERED: LEVO200T6 PO (08:53)
[2018-11-26] MEDS ORDERED: ZOLP10TA5 PO (08:53)
[2018-11-26] MEDS ORDERED: GABA-488 PO (08:53)
[2018-11-26] MEDS ORDERED: MORP-34 PO (08:53)
[2018-11-26] MEDS ORDERED: TRAM50TA2 PO (08:53)
[2018-11-26] MEDS ORDERED: FAMO20TA5 PO (08:53)
[2018-11-26] MEDS ORDERED: HYDR-3820 PO (08:53)
[2018-11-26] MEDS ORDERED: ATOR10TA66 PO (08:53)
[2018-11-26] MEDS ORDERED: LEVO75TA6 PO (08:53)
[2018-11-26] MEDS ORDERED: CYCL10TA9 PO (08:53)
[2018-11-26] MEDS ORDERED: ROPI0.5T2 PO ×2 (08:53)
[2018-11-26] MEDS ORDERED: MUPIROCIN 2% OINT 22 GM (BACTROBAN) TUBE TOP SCH ×2 (09:00)
[2018-11-26] MEDS ORDERED: OMEG1CAP58 PO (09:19)
[2018-11-26] MEDS ORDERED: POTA-51 PO (09:24)
--- NOTE | 2018-11-26 09:25 | NUR ---
SPOKE WITH THE PATIENT ABOUT HER MEDICATIONS. SHE HAD SOME OF HER BOTTLES WITH HER AND WE WENT OVER THE EXT MED HX. 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 I CALLED [facility] AND THEY DO NOT HAVE IT ON FILE. I CALLED [facility] AND THEY LAST FILLED TORSEMIDE 20MG #180 FOR A 60 DAY SUPPLY IN 2014 WELL POTASSIUM 20MEQ #90 IN 2014. I SPOKE WITH [facility] AND THEY DO NOT HAVE A MORE RECENT CLAIM FOR THOSE TWO DRUGS AT A RETAIL PHARMACY EITHER. HER GABAPENTIN WAS FILLED 300MG 3 TID 09-14-18 HOWEVER SHE STATES SHE ONLY TAKES 3 AT HS. IN ADDITION TO WHAT IS SHOWN ON THE EXT MED HX [facility] FILLED OMEGA 3 1000MG BID #180 09-21-18.
[2018-11-26] MEDS ORDERED: PATIENT MAY USE OWN MEDS, ALL MC SCH (09:45)
[2018-11-26 12:00] VITALS: BP 127/75
--- NOTE | 2018-11-26 13:05 | Short Stay Summary ---
History of Present Illness History of Present Illness Reason for visit/HPI 68 yo female came to ER due to no improvement with possibly increased swelling in the skin infection over the bridge of her nose and eyelids. She had an insect bite or something that was itchy and she scratched it and developed infection, she was seen earlier this week and given rocephin and script for clindamycin. CT showed no orbital problems. She feels it has improved after the IV antibiotics overnight, she is able to open her eyes better and has less swelling. Date of Admission Nov 25, 2018 at 21:52 Date of Discharge Nov 26, 2018 Time Seen by Provider: 11:19 Attending Physician Popeye Oshea MD Admitting Physician Trena Gregory MD Consult Allergies and Home Medications Allergies Coded Allergies: Penicillins (Verified Allergy, Unknown, 12/13/08) Sulfa (Sulfonamide Antibiotics) (Verified Allergy, Unknown, 12/13/08) Home Medications Atorvastatin Calcium 10 Mg Tablet, 10 MG PO HS, (Reported) LAST FILLED 04-19-18 #90 Cephalexin 500 Mg Tablet, 500 MG PO QID Prescribed by: POPEYE OSHEA on 11/26/18 1307 Cyclobenzaprine HCl 10 Mg Tablet, 10 MG PO TID PRN for MUSCLE SPASMS, (Reported) Doxycycline Hyclate 100 Mg Capsule, 100 MG PO BID Prescribed by: POPEYE OSHEA on 11/26/18 1307 Duloxetine HCl 30 Mg Capsule.dr, 90 MG PO DAILY, (Reported) LAST FILLED #270 07-30-18 TAKES 3 (30MG) CAPSULES Famotidine 20 Mg Tablet, 20 MG PO DAILY PRN for HEARTBURN, (Reported) Gabapentin 300 Mg Capsule, 900 MG PO HS, (Reported) Hydrocodone/Acetaminophen 1 Each Tablet, 1 TAB PO BID PRN for PAIN-MODERATE, (Reported) Levothyroxine Sodium 75 Mcg Tablet, 75 MCG PO DAILY, (Reported) TAKES ALONG WITH 200MCG TABLET Levothyroxine Sodium 200 Mcg Tablet, 200 MCG PO DAILY, (Reported) TAKES ALONG WITH 75MCG TABLET Losartan Potassium 100 Mg Tablet, 100 MG PO DAILY, (Reported) Metoprolol Succinate 100 Mg Tab.er.24h, 100 MG PO DAILY, (Reported) Morphine Sulfate 30 Mg Tablet.er, 60 MG PO TID, (Reported) TAKES 2 (30MG) TABLETS Mupirocin 22 Gm Oint...g., TP BID, (Reported) [place]-3 Fatty Acids/Fish Oil 1 Each Capsule, 1,000 MG PO BID, (Reported) Potassium Chloride 20 Meq Tablet.er, 20 MEQ PO DAILY PRN for WHEN TAKING TORSEMIDE, (Reported) LAST FILLED #90 2014 Ropinirole HCl 0.5 Mg Tablet, 1 MG PO HS PRN for RESTLESS LEGS, (Reported) TAKES 2 (0.5MG) TABLETS Ropinirole HCl 0.5 Mg Tablet, 0.5 MG PO DAILY PRN for RESTLESS LEGS, (Reported) Torsemide 20 Mg Tablet, 20 MG PO DAILY PRN for SWELLING, (Reported) LAST FILLED #180 2014 Tramadol HCl 50 Mg Tablet, 50 MG PO Q6H PRN for PAIN-BREAKTHROUGH, (Reported) Zolpidem Tartrate 10 Mg Tablet, 5-10 MG PO HS PRN for SLEEP, (Reported) Patient Home Medication List Home Medication List Reviewed: Yes Past Riamnxr-Fnecfo-Ienwoh Hx Patient Social History Alcohol Use: Denies Use Recreational Drug Use: No Smoking Status: Current Everyday Smoker Type Used: Cigarettes Recent Foreign Travel: No Contact w/other who traveled: No Recent Hopitalizations: No Recent Infectious Disease Expo: No Immunizations Up To Date Tetanus Booster (TDap): Unknown Pediatric: Yes Date of Pneumonia Vaccine: Mar 15, 2015 Date of Influenza Vaccine: Mar 15, 2015 Surgeries Yes Orthopedic Respiratory No Cardiovascular Yes Chronic Edema/Swelling, Hypertension Neurological No Reproductive System : No Hx Reproductive Disorders: No 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 Genitourinary Yes Neurogenic Bladder, UTI-Chronic Gastrointestinal Yes Chronic Constipation Musculoskeletal Yes Chronic Back Pain, Fractures Endocrine History of Endocrine Disorders: Yes Endocrine Disorders: Hypothyroidsim Cancer No Psychosocial History of Psychiatric Problem: Yes Behavioral Health Disorders: Anxiety Integumentary History of Skin or Integumenta: No Blood Transfusions History of Blood Disorders: No Adverse Reaction to a Blood Tr: No Family Medical History Family Hx: Alzheimer's disease 19 MOTHER Review of Systems Constitutional: No fever EENTM: No nose congestion, No throat pain Respiratory: No cough Cardiovascular: No chest pain Gastrointestinal: No abdominal pain Genitourinary: no symptoms reported Musculoskeletal: no symptoms reported Skin: see HPI Psychiatric/Neurological: No Symptoms Reported Physical Exam Vital Signs Vital Signs - First Documented 11/25/18 11/26/18 21:31 01:30 Temp 97.2 Pulse 73 Resp 20 B/P (MAP) 167/72 (103) Pulse Ox 97 O2 Delivery Room Air FiO2 21 Capillary Refill : Less Than 3 Seconds Height, Weight, BMI Height: 5'4.00" Weight: 220lbs. 10.0oz. [id number]; 37.9 BMI Method:Stated General Appearance: No Apparent Distress HEENT: PERRL/EOMI Respiratory: Lungs Clear Cardiovascular: Regular Rate, Rhythm Gastrointestinal: Normal Bowel Sounds Extremity: Pedal Edema Skin: Other (erythema with some honey colored crust over bridge of nose and both upper and lower eyelids) Clinical Quality Measures DVT/VTE Risk/Contraindication: Risk Factor Score Per Nursin RFS Level Per Nursing on Admit: 4+=Very High Short Stay Diagnosis Discharge Diagnosis-Short Stay Admission Diagnosis: Impetigo Cellulitis Final Discharge Diagnosis: Impetigo Cellulitis Conclusion Labs Laboratory Tests 11/25/18 21:51: White Blood Count 6.7, Red Blood Count 4.45, Hemoglobin 12.1, Hematocrit 39, Mean Corpuscular Volume 87, Mean Corpuscular Hemoglobin 27, Mean Corpuscular Hemoglobin Concent 31L, Red Cell Distribution Width 14.9H, Platelet Count 247, Mean Platelet Volume 10.5H, Neutrophils (%) (Auto) 58, Lymphocytes (%) (Auto) 28, Monocytes (%) (Auto) 10, Eosinophils (%) (Auto) 4, Basophils (%) (Auto) 1, Neutrophils # (Auto) 3.9, Lymphocytes # (Auto) 1.9, Monocytes # (Auto) 0.7, Eosinophils # (Auto) 0.3, Basophils # (Auto) 0.1, Sodium Level 139, Potassium Level 4.7, Chloride Level 103, Carbon Dioxide Level 25, Anion Gap 11, Blood Urea Nitrogen 16, Creatinine 0.70, Estimat Glomerular Filtration Rate > 60, BUN/Creatinine Ratio 23, Glucose Level 84, Calcium Level 9.0, Corrected Calcium 9.2, Total Bilirubin 0.3, Aspartate Amino Transf (AST/SGOT) 14, Alanine Aminotransferase (ALT/SGPT) 6, Alkaline Phosphatase 82, Total Protein 6.5, Albumin 3.8 Conclusion/Plan Patient admitted and started on IV cefazolin and vancomycin, labs were unremarkable. She had improvement in swelling and erythema and was discharged on oral cephalexin and doxycycline. Copy Copies To 1: TRENA GREGORY MD,POPEYE Welsh MD Nov 26, 2018 13:05
[2018-11-26] MEDS ORDERED: DOXY100C2 PO (13:07)
[2018-11-26] MEDS ORDERED: CEPH500T PO (13:07)
--- NOTE | 2018-11-26 13:08 | Discharge Instructions ---
Discharge [facility] Discharge Medications New, Converted or Re-Newed RX: Transmitted to Pharmacy New Medications: Cephalexin (Cephalexin) 500 Mg Tablet 500 MG PO QID, #28 TAB 0 Refills Doxycycline Hyclate (Doxycycline Hyclate) 100 Mg Capsule 100 MG PO BID, #14 CAP 0 Refills Continued Medications: Atorvastatin Calcium (Atorvastatin Calcium) 10 Mg Tablet 10 MG PO HS, TAB LAST FILLED 04-19-18 #90 Cyclobenzaprine HCl (Cyclobenzaprine HCl) 10 Mg Tablet 10 MG PO TID PRN for MUSCLE SPASMS, TAB Duloxetine HCl (Duloxetine HCl) 30 Mg Capsule.dr 90 MG PO DAILY, CAP LAST FILLED #270 07-30-18 TAKES 3 (30MG) CAPSULES Famotidine (Famotidine) 20 Mg Tablet 20 MG PO DAILY PRN for HEARTBURN, TAB Gabapentin (Gabapentin) 300 Mg Capsule 900 MG PO HS, CAP Hydrocodone/Acetaminophen (Hydrocodon-Acetaminophn 10-325) 1 Each Tablet 1 TAB PO BID PRN for PAIN-MODERATE, TAB Levothyroxine Sodium (Levothyroxine Sodium) 75 Mcg Tablet 75 MCG PO DAILY, TAB TAKES ALONG WITH 200MCG TABLET Levothyroxine Sodium (Levothyroxine Sodium) 200 Mcg Tablet 200 MCG PO DAILY, TAB TAKES ALONG WITH 75MCG TABLET Losartan Potassium (Losartan Potassium) 100 Mg Tablet 100 MG PO DAILY, TAB Metoprolol Succinate (Metoprolol Succinate) 100 Mg Tab.er.24h 100 MG PO DAILY, TAB Morphine Sulfate (Morphine Sulfate ER) 30 Mg Tablet.er 60 MG PO TID, TAB TAKES 2 (30MG) TABLETS Mupirocin (Mupirocin) 22 Gm Oint...g. TP BID, TUBE Eads-3 Fatty Acids/Fish Oil (Eads 3 1,000 mg Softgel) 1 Each Capsule 1000 MG PO BID, CAP Potassium Chloride (Potassium Chloride) 20 Meq Tablet.er 20 MEQ PO DAILY PRN for WHEN TAKING TORSEMIDE, TAB LAST FILLED #90 2014 Ropinirole HCl (Ropinirole HCl) 0.5 Mg Tablet 1 MG PO HS PRN for RESTLESS LEGS, TAB TAKES 2 (0.5MG) TABLETS Ropinirole HCl (Ropinirole HCl) 0.5 Mg Tablet 0.5 MG PO DAILY PRN for RESTLESS LEGS, TAB Torsemide (Torsemide) 20 Mg Tablet 20 MG PO DAILY PRN for SWELLING, TAB LAST FILLED #180 2015 Tramadol HCl (Tramadol HCl) 50 Mg Tablet 50 MG PO Q6H PRN for PAIN-BREAKTHROUGH, TAB Zolpidem Tartrate (Zolpidem Tartrate) 10 Mg Tablet 5-10 MG PO HS PRN for SLEEP, TAB Discontinued Medications: Clindamycin HCl (Clindamycin HCl) 300 Mg Capsule 300 MG PO QID for 7 Days, CAP 7 DAY SUPPLY FILLED 11-22-18 Patient Instructions Goal/Follow Up Appt: Follow up with Dnaa Orantes in [facility] on 12/01 at 1100 am. Return to The Hospital For: Worsening redness or facial swelling, vision problems Activity & Diet Discharge Diet: No Restrictions Activity as Tolerated: Yes Copy Copies To 1: TRENA GREGORY MD,POPEYE Welsh MD Nov 26, 2018 13:08
--- NOTE | 2018-11-26 13:14 | NUR ---
Initial visit: The pt is originally from [place] and lives in the [place] area. Her son is in [place] and works in [place]. The pt shared she is Shinto however does not attend a parish and declines communion at this time.
[2018-11-26 15:30] VITALS: BP 127/75
--- NOTE | 2018-11-26 15:30 | NUR ---
CIPRIANO HO demonstrates understanding of discharge instructions and accurately returns instructions upon questioning. Copy of Post-Discharge Instructions given to PT. CIPRIANO HO is able to manage continuing needs after discharge. Patients belongings returned to PT. Patient discharged from [facility] on 11/26/18 at 1530 . CIPRIANO HO left floor via W/C, accompanied by STAFF AND SISTER PER AUTO.
[2018-11-27] MEDS ORDERED: TROUGH ORDER-PHARMACY XX NR (13:00)
== END 2018-11-26 13:07 | disposition home or self-care (01) ==
LOC: EDUNIT# 21:31 → ER 21:32 → 4TH 21:52 → UNDOADMOB 21:52 → 4TH 23:53 → UNDODISOB 11-26 15:30
PROVIDERS: ADMIT Family Medicine; ATTEND Family Medicine
DX: L03.213 Periorbital cellulitis (principal); L01.00 Impetigo, unspecified; H02.843 Edema of right eye, unspecified eyelid; H02.846 Edema of left eye, unspecified eyelid; I10 Essential (primary) hypertension; N39.0 Urinary tract infection, site not specified; K59.09 Other constipation; G89.29 Other chronic pain; M54.9 Dorsalgia, unspecified; E03.9 Hypothyroidism, unspecified; F41.9 Anxiety disorder, unspecified; F17.210 Nicotine dependence, cigarettes, uncomplicated; Z88.0 Allergy status to penicillin; Z88.2 Allergy status to sulfonamides; Z82.0 Family history of epilepsy and other diseases of the nervous system; Z79.899 Other long term (current) drug therapy
CPT/HCPCS: 36415; 80053; 85025; 94760; 96365; G0378

== ENCOUNTER 2019-04-06 13:40 | Emergency (ER) | payer MEDICARE ==
[~2019-04-06] VITALS: Ht 170 cm; Wt 90.7 kg
[~2019-04-06 13:40] MED LIST changes: +ATOR10TA66 PO; +CEPH500T PO; +CYCL10TA9 PO; +DOXY100C2 PO; +FAMO20TA5 PO; +GABA-488 PO; +HYDR-3820 PO; +LEVO200T6 PO; +LEVO75TA6 PO; +LOSA100T57 PO; +MORP-69 PO; +MTP100TCR PO; +OMEG1CAP58 PO; +POTA-51 PO; +ROPI0.5T2 PO; +TRM50T PO; +ZOLP10TA5 PO
[2019-04-06] MEDS ORDERED: ETOMIDATE IV SOLN 20 MG/10 ML VIAL IV ONE (13:42)
[2019-04-06] MEDS ORDERED: ROCURONIUM 10 MG/ML 5 ML SYRINGE IV ONE (13:42)
[2019-04-06] MEDS ORDERED: MIDAZOLAM 5 MG/5 ML (VERSED) VIAL INJ ONE (13:42)
[2019-04-06] MEDS ORDERED: NS IV 1000 ML 1,000 ML IV STA (14:04)
[2019-04-06] MEDS: LACTATED RINGERS 1,000 ML IV STA (14:05)
[2019-04-06 14:28] LABS: CLARITY,URINE TURBID; COLOR,URINE AMBER; GLUCOSE, URINE (UA) NEGATIVE (NEGATIVE); KETONES,URINE TRACE (NEGATIVE); LEUKOCYTE ESTERASE ,URINE 2+ (NEGATIVE); NITRITE,URINE NEGATIVE (NEGATIVE); PROTEIN,URINE 2+ (NEGATIVE)
[2019-04-06] MEDS ORDERED: PROPOFOL DRIP (ICU) 100 ML IV ONE (14:29)
[2019-04-06] MEDS ORDERED: NOREPINEPHRINE 4 MG/4 ML (LEVOPHED) AMP IV ONE (14:36)
[2019-04-06] MEDS ORDERED: NS (IVPB) 250 ML ONE (14:37)
[2019-04-06 14:40] LABS: BACTERIA,URINE LARGE /HPF; RBC,URINE 0-2 /HPF
[2019-04-06 14:41] LABS: BILIRUBIN,URINE 1+ ICTO=NEG (NEGATIVE)
[2019-04-06 14:43] LABS: AMPHETAMINE SCREEN, URINE NEGATIVE (NEGATIVE); BARBITURATE SCREEN URINE NEGATIVE (NEGATIVE); BENZODIAZEPINES SCREEN URINE NEGATIVE (NEGATIVE); CANNABINOID SCREEN, URINE NEGATIVE (NEGATIVE); COCAINE SCREEN URINE NEGATIVE (NEGATIVE); METHADONE STAT NEGATIVE (NEGATIVE); METHAMPHETAMINE SCREEN URINE S NEGATIVE (NEGATIVE); OPIATE SCREEN URINE POSITIVE (NEGATIVE); OXYCODONE STAT NEGATIVE (NEGATIVE); PROPOXYPHENE STAT NEGATIVE (NEGATIVE); TRICYCLIC ANTIDEPRESSANTS SCRE POSITIVE (NEGATIVE)
[2019-04-06] MEDS ORDERED: NOREPINEPHRINE 4 MG in NS (IVPB) 250 ML IV SCH (14:45)
[2019-04-06] MEDS ORDERED: PROPOFOL DRIP (ICU) 100 ML IV SCH (14:45)
[2019-04-06 14:56] LABS: BASOPHILS % (AUTO) 0 % (0-10); EOSINOPHILS % (AUTO) 0 % (0-10); HEMATOCRIT 31 % (35-52); HEMOGLOBIN 10.2 G/DL (11.5-16.0); LYMPHOCYTES # (AUTO) 1.2 X 10^3 (1.0-4.0); LYMPHOCYTES % (AUTO) 10 % (12-44); MEAN CORPUSCULAR HEMOGLOBIN 27 PG (25-34); MEAN CORPUSCULAR HGB CONC 33 G/DL (32-36); MEAN CORPUSCULAR VOLUME 81 FL (80-99); MEAN PLATELET VOLUME 10.4 FL (7.4-10.4); MONOCYTES # (AUTO) 1.5 X 10^3 (0.0-1.0); MONOCYTES % (AUTO) 12 % (0-12); NEUTROPHILS # (AUTO) 9.1 X 10^3 (1.8-7.8); NEUTROPHILS % (AUTO) 77 % (42-75); PLATELET COUNT 222 10^3/uL (130-400); RED CELL DISTRIBUTION WIDTH 15.5 % (10.0-14.5); WHITE BLOOD COUNT 11.7 10^3/uL (4.3-11.0)
[2019-04-06 15:13] LABS: INR 1.3 (0.8-1.4); PROTHROMBIN TIME PATIENT 17.1 SEC (12.2-14.7)
[2019-04-06 15:18] LABS: ALANINE AMINOTRANSFERASE 62 U/L (0-55); ALBUMIN 3.1 GM/DL (3.2-4.5); ALKALINE PHOSPHATASE 87 U/L (40-136); BILIRUBIN,TOTAL 0.7 MG/DL (0.1-1.0); BUN/CREATININE RATIO 17; CALCIUM 7.5 MG/DL (8.5-10.1); CARBON DIOXIDE 13 MMOL/L (21-32); CHLORIDE 98 MMOL/L (98-107); CREATININE SERUM 5.75 MG/DL (0.60-1.30); GFR ESTIMATED 7; GLUCOSE 69 MG/DL (70-105); POTASSIUM 5.1 MMOL/L (3.6-5.0); SALICYLATE < 5.0 MG/DL (5.0-20.0); SODIUM 133 MMOL/L (135-145); TOTAL PROTEIN 5.6 GM/DL (6.4-8.2)
[2019-04-06 15:22] LABS: ABG BASE EXCESS -14.3 MMOL/L (-2.5-2.5); ABG OXYGEN SATURATION 91 % (94-100); ABG PCO2 43 MMHG (35-45); ABG PO2 77 MMHG (79-93); ABG TCO2 14.7 MMOL/L (21.0-31.0)
[2019-04-06 15:23] LABS: ABG PH 7.12 (7.37-7.43); ALLENS TEST POSITIVE; INSPIRED O2 100%; PATIENT TEMP 97.5; VENTILATOR YES
--- NOTE | 2019-04-06 15:23 | Diagnostic Imaging Report ---
INDICATION: Line placement. FINDINGS: There is a substantial degree of leftward rotation. An ET tube is in the mid thoracic trachea and an IJ catheter is at the cavoatrial junction or lower SVC. There are perihilar infiltrates in the medial lung bases. There is no pneumothorax. An OG catheter goes into the stomach. IMPRESSION: Given rotation, the support apparatus projects in good alignment. There are perihilar and basilar zones of atelectasis and nonspecific infiltrate with no pleural abnormality. Dictated by: Dictated on workstation # [id number]
[2019-04-06 15:24] LABS: ACETAMINOPHEN < 10 UG/ML (10-30)
[2019-04-06] MEDS ORDERED: RT-ALBUTEROL/IPRATROPIUM 3 ML (DUONEB) VIAL ONE (15:24)
[2019-04-06] MEDS ORDERED: DEXTROSE 50% 50 ML (IMS) SYR ONE (15:36)
--- NOTE | 2019-04-06 15:38 | NUR ---
1413 16FR RIVER INSERTED 1420 VAPOTHERM STARTED 1423 PT UNABLE TO TOLERATE VAPOTHERM, IN ROOM, PREPARTING TO INTUBATE 1425 50MG NINA 1428 INTUBATION 23CM AT LIPS, 7.5 ETT, + COLOR CHANGE ECO2, 100% SAO2, BREATH SOUNDS EQUAL BILAT 1430 5MG VERSED 1432 NG INSERTED 1440 CENTRAL LINE INSERTED 1447 BLOOD DRAWN FRON CENTRAL LINE AND SENT TO LAB [address] MURPHY USE OF CENTRAL LINE 1451 LEVOPHED 0.1MCG/KG/MIN = 26.7 ML/HR PER PUMP 1459 NS @999ML/HR 1503 ROPOFOL 20 MCG/KG/MIN = 8.4 ML/HR 1503 2ND SET OF BC DRAWN BY LAB 1504 RT PUT PT ON VENT 1508 1ST 1000ML BAG OF LR FINISHED 1527 NOREPI INCREASED TO 34.3 MCG/KG/HR (ADUSTED PT WEIGHT OT 90KG) 1527 3RD 1000ML BAG NS STARTED
[2019-04-06 15:42] VITALS: BP 106/57
--- NOTE | 2019-04-06 16:04 | ED General ---
General Chief Complaint: Respiratory Problems Stated Complaint: WEAKNESS Nursing Triage Note: PT TO ROOM 03 VIA EMS WITH C/O LETHARGY, SOA, HYPOTENSION. Nursing Sepsis Screen: No Definite Risk Source of Information: Patient, EMS, Family Exam Limitations: Physical Impairments History of Present Illness Date Seen by Provider: Apr 06, 2019 Time Seen by Provider: 14:00 Initial Comments Here with report from EMS of fall and needing lift assist yesterday and again for call for the same today. EMS arrived and found the patient to be quite weak with blood pressure in the 70s and verbal O2 saturations. They were unable to get IV. Patient states that she is just weak but denied anything else. Family later arrives and reports that she may have been out of her morphine that she gets prescribed 60 tablets per month of 30 mg of MS Contin. She reportedly has not taken that for the last 2-3 days and family is also reporting that she's had severe diarrhea for the last 2 days and is not eating or drinking. She takes the MS Contin for chronic back pain. Timing/Duration: 2-3 Days Severity: Moderate Associated Systoms: No Chest Pain, No Cough, No Fever/Chills, No Nausea/Vomiting; Shortness of Air, Weakness Allergies and Home Medications Allergies Coded Allergies: Penicillins (Verified Allergy, Unknown, 12/13/08) Sulfa (Sulfonamide Antibiotics) (Verified Allergy, Unknown, 12/13/08) Home Medications Atorvastatin Calcium 10 Mg Tablet, 10 MG PO HS, (Reported) LAST FILLED 04-19-18 #90 Cephalexin 500 Mg Tablet, 500 MG PO QID Prescribed by: POPEYE OSHEA on 11/26/18 1307 Cyclobenzaprine HCl 10 Mg Tablet, 10 MG PO TID PRN for MUSCLE SPASMS, (Reported) Doxycycline Hyclate 100 Mg Capsule, 100 MG PO BID Prescribed by: POPEYE OSHEA on 11/26/18 1307 Duloxetine HCl 30 Mg Capsule.dr, 90 MG PO DAILY, (Reported) LAST FILLED #270 07-30-18 TAKES 3 (30MG) CAPSULES Famotidine 20 Mg Tablet, 20 MG PO DAILY PRN for HEARTBURN, (Reported) Gabapentin 300 Mg Capsule, 900 MG PO HS, (Reported) Hydrocodone/Acetaminophen 1 Each Tablet, 1 TAB PO BID PRN for PAIN-MODERATE, (Reported) Levothyroxine Sodium 75 Mcg Tablet, 75 MCG PO DAILY, (Reported) TAKES ALONG WITH 200MCG TABLET Levothyroxine Sodium 200 Mcg Tablet, 200 MCG PO DAILY, (Reported) TAKES ALONG WITH 75MCG TABLET Losartan Potassium 100 Mg Tablet, 100 MG PO DAILY, (Reported) Metoprolol Succinate 100 Mg Tab.er.24h, 100 MG PO DAILY, (Reported) Morphine Sulfate 30 Mg Tablet.er, 60 MG PO TID, (Reported) TAKES 2 (30MG) TABLETS Mupirocin 22 Gm Oint...g., TP BID, (Reported) [place]-3 Fatty Acids/Fish Oil 1 Each Capsule, 1,000 MG PO BID, (Reported) Potassium Chloride 20 Meq Tablet.er, 20 MEQ PO DAILY PRN for WHEN TAKING TORSEMIDE, (Reported) LAST FILLED #90 2014 Ropinirole HCl 0.5 Mg Tablet, 1 MG PO HS PRN for RESTLESS LEGS, (Reported) TAKES 2 (0.5MG) TABLETS Ropinirole HCl 0.5 Mg Tablet, 0.5 MG PO DAILY PRN for RESTLESS LEGS, (Reported) Torsemide 20 Mg Tablet, 20 MG PO DAILY PRN for SWELLING, (Reported) LAST FILLED #180 2014 Tramadol HCl 50 Mg Tablet, 50 MG PO Q6H PRN for PAIN-BREAKTHROUGH, (Reported) Zolpidem Tartrate 10 Mg Tablet, 5-10 MG PO HS PRN for SLEEP, (Reported) Patient Home Medication List Home Medication List Reviewed: Yes Review of Systems Review of Systems Constitutional: see HPI, chills; No fever; weakness EENTM: no symptoms reported Respiratory: short of breath; No wheezing Cardiovascular: No chest pain, No palpitations Gastrointestinal: No abdominal pain; diarrhea; No nausea, No vomiting Genitourinary: decreased output, dysuria Musculoskeletal: no symptoms reported Skin: no symptoms reported Psychiatric/Neurological: No Symptoms Reported All Other Systems Reviewed Negative Unless Noted: Yes Past Kdnsetf-Ovvsep-Mwetkm Hx Past Med/Social Hx: Reviewed Nursing Past Med/Soc Hx Patient Social History Alcohol Use: Denies Use Recreational Drug Use: No Smoking Status: Current Everyday Smoker Type Used: Cigarettes 2nd Hand Smoke Exposure: Yes Recent Foreign Travel: No Contact w/Someone Who Travel: No Recent Infectious Disease Expo: No Recent Hopitalizations: No Physical Abuse: No Sexual Abuse: No Mistreated: No Fear: No Immunizations Up To Date Tetanus Booster (TDap): Unknown PED Vaccines UTD: Yes Date of Pneumonia Vaccine: Mar 15, 2015 Date of Influenza Vaccine: Mar 15, 2015 Past Medical History Surgeries: Yes Orthopedic Respiratory: No Cardiac: Yes Chronic Edema/Swelling, Hypertension Neurological: No Reproductive Disorders: No 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 Genitourinary: Yes Neurogenic Bladder, UTI-Chronic Gastrointestinal: Yes Chronic Constipation Musculoskeletal: Yes Chronic Back Pain, Fractures Endocrine: Yes Hypothyroidsim Cancer: No Psychosocial: Yes Anxiety Integumentary: No Blood Disorders: No Adverse Reaction/Blood Tranf: No Family Medical History Reviewed Nursing Family Hx Alzheimer's disease 19 MOTHER No Pertinent Family Hx Physical Exam-Suspected Sepsis Physical Exam Vital Signs Vital Signs - First Documented 04/06/19 04/06/19 04/06/19 04/06/19 13:45 14:00 15:04 15:42 Temp 36.3 Pulse 115 Resp 15 B/P (MAP) 82/56 (65) Pulse Ox 94 O2 Delivery Room Air O2 Flow Rate 15.00 FiO2 80 Capillary Refill : Greater Than 3 Seconds Blood Pressure Mean: 67 POS Height, Weight, BMI Height: 5'4.00" Weight: 220lbs. 10.0oz. [id number]; 31.00 BMI Method:Stated General Appearance: Chronically ill, Moderate Distress HEENT: PERRL/EOMI, Pharynx Normal Neck: Non Tender, Supple Respiratory: Crackles, Decreased Breath Sounds Cardiovascular: No Murmur, Tachycardia Gastrointestinal: No Pulsatile Mass, Non Tender, Soft Back: Normal Inspection, No CVA Tenderness, No Vertebral Tenderness Extremity: Non Tender, No Calf Tenderness, Other (venous-stasis changes to the distal legs) Neurologic/Psychiatric: Other (drowsy and slurred speech. Somewhat confused.) Skin: cyanosis, cool; No ulcerations Focused Exam Lactate Level 04/06/19 14:47: Lactic Acid Level 1.13 Lactic Acid Level Laboratory Tests Test 04/06/19 14:47 Lactic Acid Level 1.13 MMOL/L (0.50-2.00) Procedures/Interventions Lumen: triple Central Line Procedure: betadine prep, sterile drapes applied, sterile dressing applied Position: internal jugular (R) Complications: none Post Position: sutured, good blood return, position confirmed w/ CXR Right IJ central line placed. Ultrasound guidance 1 stick, with no complications. Date of ETT Placement: Apr 06, 2019 Time of ETT Placement: 1428 Tube Size: 7.50 Medications: Etomidate, Rocuronium Positive End Tide CO2: Yes Breath Sounds after Intubation: bilateral-equal Intubation Complications: no complications Post Intubation Xray: Yes tube in good position Patient with increasing respiratory distress and hypotension. A becoming hypoxic and cyanotic. Intubation emergent due to respiratory failure. Family agreed. Progress/Results/Core Measures Suspected Sepsis Recent Fever Within 48 Hours: No Infection Criteria Present: None New/Unexplained Altered Menta: Yes Sepsis Screen: No Definite Risk SIRS Temperature: Pulse: 126 Respiratory Rate: 14 Laboratory Tests 04/06/19 14:47: White Blood Count 11.7H Blood Pressure 106 /57 Mean: 67 04/06/19 14:47: Lactic Acid Level 1.13 Laboratory Tests 04/06/19 14:47: Creatinine 5.75H, INR Comment 1.3, Platelet Count 222, Total Bilirubin 0.7 Results/Orders Lab Results Laboratory Tests Test 04/06/19 14:15 04/06/19 14:47 04/06/19 15:18 04/06/19 16:23 Range/Units Urine Color IOANA H Urine Clarity TURBID Urine pH 7.0 5-9 Urine Specific [place] 1.025 H 1.016-1.022 Urine Protein 2+ H NEGATIVE Urine Glucose (UA) NEGATIVE NEGATIVE Urine Ketones TRACE H NEGATIVE Urine Nitrite NEGATIVE NEGATIVE Urine Bilirubin 1+ ICTO=NEG NEGATIVE Urine Urobilinogen 0.2 < = 1.0 MG/DL Urine Leukocyte Esterase 2+ H NEGATIVE Urine RBC (Auto) TRACE-I NEGATIVE Urine RBC 0-2 /HPF Urine WBC 10-25 H /HPF Urine Crystals NONE /LPF Urine Bacteria LARGE H /HPF Urine Casts NONE /LPF Urine Mucus NEGATIVE /LPF Urine Culture Indicated CULTURE PENDING Urine Opiates Screen POSITIVE H NEGATIVE Urine Oxycodone Screen NEGATIVE NEGATIVE Urine Methadone Screen NEGATIVE NEGATIVE Urine Propoxyphene Screen NEGATIVE NEGATIVE Urine Barbiturates Screen NEGATIVE NEGATIVE Ur Tricyclic Antidepressants Screen POSITIVE H NEGATIVE Urine Phencyclidine Screen NEGATIVE NEGATIVE Urine Amphetamines Screen NEGATIVE NEGATIVE Urine Methamphetamines Screen NEGATIVE NEGATIVE Urine Benzodiazepines Screen NEGATIVE NEGATIVE Urine Cocaine Screen NEGATIVE NEGATIVE Urine Cannabinoids Screen NEGATIVE NEGATIVE White Blood Count 11.7 H 4.3-11.0 10^3/uL Red Blood Count 3.78 L 4.35-5.85 10^6/uL Hemoglobin 10.2 L 11.5-16.0 G/DL Hematocrit 31 L 35-52 % Mean Corpuscular Volume 81 80-99 FL Mean Corpuscular Hemoglobin 27 25-34 PG Mean Corpuscular Hemoglobin Concent 33 32-36 G/DL Red Cell Distribution Width 15.5 H 10.0-14.5 % Platelet Count 222 130-400 10^3/uL Mean Platelet Volume 10.4 7.4-10.4 FL Neutrophils (%) (Auto) 77 H 42-75 % Lymphocytes (%) (Auto) 10 L 12-44 % Monocytes (%) (Auto) 12 0-12 % Eosinophils (%) (Auto) 0 0-10 % Basophils (%) (Auto) 0 0-10 % Neutrophils # (Auto) 9.1 H 1.8-7.8 X 10^3 Lymphocytes # (Auto) 1.2 1.0-4.0 X 10^3 Monocytes # (Auto) 1.5 H 0.0-1.0 X 10^3 Eosinophils # (Auto) 0.0 0.0-0.3 10^3/uL Basophils # (Auto) 0.0 0.0-0.1 10^3/uL Prothrombin Time 17.1 H 12.2-14.7 SEC INR Comment 1.3 0.8-1.4 Activated Partial Thromboplast Time 39 H 24-35 SEC Sodium Level 133 L 135-145 MMOL/L Potassium Level 5.1 H 3.6-5.0 MMOL/L Chloride Level 98 98-107 MMOL/L Carbon Dioxide Level 13 L 21-32 MMOL/L Anion Gap 22 H 5-14 MMOL/L Blood Urea Nitrogen 98 H 7-18 MG/DL Creatinine 5.75 H 0.60-1.30 MG/DL Estimat Glomerular Filtration Rate 7 BUN/Creatinine Ratio 17 Glucose Level 69 L 70-105 MG/DL Lactic Acid Level 1.13 0.50-2.00 MMOL/L Calcium Level 7.5 L 8.5-10.1 MG/DL Corrected Calcium 8.2 L 8.5-10.1 MG/DL Total Bilirubin 0.7 0.1-1.0 MG/DL Aspartate Amino Transf (AST/SGOT) 194 H 5-34 U/L Alanine Aminotransferase (ALT/SGPT) 62 H 0-55 U/L Alkaline Phosphatase 87 40-136 U/L Total Protein 5.6 L 6.4-8.2 GM/DL Albumin 3.1 L 3.2-4.5 GM/DL Salicylates Level < 5.0 L 5.0-20.0 MG/DL Acetaminophen Level < 10 L 10-30 UG/ML Serum Alcohol < 10 <10 MG/DL Blood Gas Puncture Site RIGHT RADIAL Blood Gas Patient Temperature 97.5 Arterial Blood pH 7.12 *L 7.37-7.43 Arterial Blood Partial Pressure CO2 43 35-45 MMHG Arterial Blood Partial Pressure O2 77 L 79-93 MMHG Arterial Blood HCO3 13 *L 23-27 MMOL/L Arterial Blood Total CO2 14.7 L 21.0-31.0 MMOL/L Arterial Blood Oxygen Saturation 91 L 94-100 % Arterial Blood Base Excess -14.3 L -2.5-2.5 MMOL/L Martin Test POSITIVE Blood Gas Ventilator Setting YES Blood Gas Inspired Oxygen 100% Glucometer 173 H 70-110 MG/DL My Orders Orders - ARIK PRASAD MD Cbc With Automated Diff (04/06/19 14:04) Comprehensive Metabolic Panel (04/06/19 14:04) Blood Culture (04/06/19 14:04) Sputum Culture (04/06/19 14:04) Urinalysis (04/06/19 14:04) Urine Culture (04/06/19 14:04) Protime With Inr (04/06/19 14:04) Partial Thromboplastin Time (04/06/19 14:04) Chest 1 View, Ap/Pa Only (04/06/19 14:04) Ed Iv/Invasive Line Start (04/06/19 14:04) Vital Signs Adult Sepsis Patie Q15M (04/06/19 14:04) O2 (04/06/19 14:04) Remove Rings In Anticipation O (04/06/19 14:04) Lactic Acid Analyzer (04/06/19 14:04) I-Stat Bedside Testing (04/06/19 14:04) Catheter(Urinary) Insert & Ass 03,15 (04/06/19 14:04) Ns Iv 1000 Ml (Sodium Chloride 0.9%) (04/06/19 14:04) Lactated Ringers (Lr 1000 Ml Iv Solution (04/06/19 14:04) Ekg Tracing (04/06/19 14:04) Acetaminophen (04/06/19 14:04) Alcohol (04/06/19 14:04) Drug Screen Stat (Urine) (04/06/19 14:04) Salicylate (04/06/19 14:04) Propofol Drip (Icu) (Diprivan Drip (Icu) (04/06/19 14:29) Norepinephrine (Levophed) (04/06/19 14:36) Ns (Ivpb) (Sodium Chloride 0.9%) (04/06/19 14:37) Propofol Drip (Icu) (Diprivan Drip (Icu) (04/06/19 14:45) Norepinephrine (Levophed) (04/06/19 14:45) Arterial Blood Gas (04/06/19 15:18) Sputum Culture (04/06/19 15:23) Albuterol/Ipra Inhalation Soln (Duoneb I (04/06/19 15:24) D50w (Emergency) Syringe (Dextrose 50% 5 (04/06/19 15:36) Cefepime Injection (Maxipime Injection) (04/06/19 16:30) Vancomycin Injection (Vancomycin Injecti (04/06/19 16:30) Midazolam Injection (Versed Injection) (04/06/19 17:15) Medications Given in ED Current Medications Medications Dose Ordered Sig/Kristen Route Start Time Stop Time Status Last Admin Dose Admin Albuterol/ Ipratropium 3 ml STK-MED ONCE .ROUTE 04/06/19 15:24 04/06/19 15:26 DC 04/06/19 15:41 3 ML Cefepime HCl 2000 mg/Sterile Water 20 ml @ 240 mls/hr ONCE ONCE IV 04/06/19 16:30 04/06/19 16:34 DC 04/06/19 16:51 240 MLS/HR Dextrose 50 ml STK-MED ONCE .ROUTE 04/06/19 15:36 04/06/19 15:39 DC 04/06/19 16:03 50 ML Vancomycin HCl 1500 mg/Sodium Chloride 500 ml @ 257.5 mls/ hr ONCE ONCE IV 04/06/19 16:30 04/06/19 18:26 04/06/19 16:52 257.5 MLS/HR Vital Signs/I&O 04/06/19 04/06/19 04/06/19 04/06/19 13:45 14:00 15:04 15:42 Temp 36.3 Pulse 115 126 Resp 15 10 14 B/P (MAP) 82/56 (65) 101/50 Pulse Ox 94 96 O2 Delivery Room Air OxyMask Mechanical Ventilator O2 Flow Rate 15.00 FiO2 80 Capillary Refill : Greater Than 3 Seconds Blood Pressure Mean: 67 POS Progress Note : Progress Note Seen and evaluated on arrival by EMS. Patient hypotensive. IV established and LR 1 L bolus initiated with saline 1 L bolus to follow. Sepsis workup and protocol initiated. Sigala catheter placed. 1425: Patient becoming increasingly hypoxic and in respiratory distress and emergent intubation indicated. This was completed at 1430 using etomidate and rocuronium. Patient found to have markedly elevated creatinine on i-STAT results and elevated potassium as well. Postintubation sedation with Versed 5 mg IV. NG inserted. 1451: Central line to the right IJ placed by me via ultrasound guidance. Levophed initiated due to persistent hypotension after central line verified by chest x-ray. 1527: Normal saline 1 L bolus initiated. Lactic acid is not elevated. She does have findings of UTI and pneumonia with respiratory failure. We will need to transfer patient due to [facility] level service because of renal failure. Norepinephrine increased to keep systolic blood pressure greater than 90. 05/09/03: I have discussed the case with [facility] in [facility], Dr. Hyde, critical care bindery leadperson. He accepts patient for transfer and admission to their ICU. We will initiate cefepime 2 g IV as well as vancomycin 1500 mg IV for the pneumonia and UTI. 1640: I have further discussed with the family and have found further information regarding the patient over the last few days. She is apparently had profound diarrhea and this is likely the result from not taking her morphine. This might account for the profound dehydration. Patient's sister states that she still has morphine in the house but was not taking her medicines. I did further discuss with the family regarding the patient's current illness. While they are in favor of resuscitative measures they do not want CPR (no compressions) to be initiated if the patient's heart were to stop. They will also discussed this with the team at [facility]. Pending transfer. 1718: Report to EMS by me. Versed 5 mg IV. ECG Initial ECG Impression Date: Apr 06, 2019 Initial ECG Impression Time: 13:51 Initial ECG Rate: 116 Initial ECG Rhythm: S.Tach Comment Sinus tachycardia with right axis deviation. Right ventricular hypertrophy noted. No evidence of ST elevation DC. Change from previous of 29 March 2015 which is atrial fibrillation. Diagnostic Imaging Diagonstic Imaging: Xray Plain Films/CT/US/NM/MRI: chest Comments [facility]. POS [place], [place] POS NAME: CIPRIANO HO [facility] REC#: [id number] PT STATUS: REG ER : 1950 PHYSICIAN: ARIK PRASAD MD ADMIT DATE: 04/06/19/ER Draft POSDate of Exam:04/06/19 CHEST 1 VIEW, AP/PA ONLY INDICATION: Line placement. FINDINGS: There is a substantial degree of leftward rotation. An ET tube is in the mid thoracic trachea and an IJ catheter is at the cavoatrial junction or lower SVC. There are perihilar infiltrates in the medial lung bases. There is no pneumothorax. An OG catheter goes into the stomach. IMPRESSION: Given rotation, the support apparatus projects in good alignment. There are perihilar and basilar zones of atelectasis and nonspecific infiltrate with no pleural abnormality. Dictated on workstation # [id number] Dict: 04/06/19 1516 Trans: 04/06/19 1522 [id number] Interpreted by: YAA MCKEON Electronically signed by: Departure Impression Primary Impression: Acute renal failure Qualified Codes: N17.9 - Acute kidney failure, unspecified Disposition: XFER SHT-TRM HOSP Condition: Critical Transfer Transfer Reason: Exceeds level of care Time Spoke to Accepting Phy: 16:04 Transfer Progress Notes [place], [place], Dr. Hyde accepting. Departure-Patient Inst. Referrals: TRENA GREGORY MD (PCP/Family) Primary Care Physician ARIK PRASAD MD Apr 06, 2019 16:04 POS
--- NOTE | 2019-04-06 16:07 | NUR ---
PROPOFOL INCREASED TO 30 MCG/KG/MIN = 12.6 ML/HR
[2019-04-06] MEDS ORDERED: CEFEPIME INJECTION 2,000 MG in WATER (STERILE) FOR INJECTION 20 ML IV ONE (16:30)
[2019-04-06] MEDS ORDERED: VANCOMYCIN INJECTION 1,500 MG in NS IV 500 ML 500 ML IV ONE (16:30)
[2019-04-06 17:15] VITALS: BP 111/50
[2019-04-06] MEDS ORDERED: MIDAZOLAM 5 MG/5 ML (VERSED) VIAL IVP ONE (17:15)
[2019-04-06] MEDS ORDERED: NS IV 1000 ML 2,000 ML ONE (20:35)
[2019-04-06] MEDS ORDERED: LACTATED RINGERS 1,000 ML IV ONE (20:35)
--- OUTSIDE RECORDS SUMMARY | 2019-05-02 09:20 | XMS REPORT ---
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, Active 948086101 Problem Bladder retention R33.9 Apr, Active 448391299 Problem Failed back syndrome M96.1 Feb, Active 72043753 Problem HLD (hyperlipidemia) E78.5 Jan, Active 18314597 Problem Low back pain radiating to both legs M54.5 Apr, Active 785103364 Problem Greater trochanteric bursitis of right hip M70.61 Apr, Active 20039143 Problem Cigarette nicotine dependence, uncomplicated F1 7.210 Mar, Active 697705769 Problem Closed fracture of radius S52.90XA Oct, A ctive 380965177 Problem Lumbar post-laminectomy syndrome M96.1 Apr, Active 059605487 Problem Osteoarthritis of glenohumeral joint, left M19. 012 Apr, Active 222672494 Problem Chronic pain G89.29 Jan, Active 8242 3001 Problem Chronic back pain M54.9 Apr, Active 337953110 Problem HTN (hypertension) I10 Jan, Active 89909763 Problem Chronic pain syndrome G89.4 Active 435541832 Problem Right sided sciatica M54.31 Feb, Active 26567620 Problem Planovalgus deformity of foot, acquired M21.6X9 Oct, Active 231456986413678 Problem Left foot pain M79.672 Active 68814 5776159671 Problem DDD (degenerative disc disease), lumbar M51.36 Feb, Active 13138279 Problem Posterior tibialis tendon insufficiency M21.40 Oct, Active 28333417 Problem Disp fx of third metatarsal bone of left foot wi th routine healing S92.332D Jul, Active Problem Hypothyroidism E03.9 Jan, Active 40 833118 Problem Tobacco use Z72.0 Mar, Active 77905 3000 Problem Primary insomnia F51.01 Active 397 2004 Problem Essential (primary) hypertension I10 Active 15541284 ALLERGIES No Information ENCOUNTERS Encounter Location Date Diagnosis [facility] [address] [place] [address] Mar, [address] [address] Dec, [address] [address] Dec, Primary insomnia F51.[address] [address] Dec, Hypothyroidism E03.9 and HTN (hypertensi on) I10 [address] [address] Dec, Chronic pain syndrome G89.[address] [address] Dec, [facility] [address] [place] [address] Dec, Chronic pain syndrome G89.[address] [address] Nov, [facility] [address] [id number] [address] [place] [address] Nov, [address] [address] Nov, Chronic pain syndrome G89.[address] [address] Nov, [facility] [address] [facility] [id number] [address] [place] [address] Nov, [facility] [address] [place] [address] Nov, HTN (hypertension) I10 [facility] [address] [place] [address] Nov, Therapeutic drug monitoring Z51.81 ; Skin tear of left lower leg without complication, initial encounter S81.812A and Encounter for immunization Z23 [address] [address] Nov, Chronic pain syndrome G89.4 ; Primary in somnia F51.01 ; HTN (hypertension) I10 and Hypothyroidism E03.[address] [address] Nov, Chronic pain syndrome G89.[address] [address] Oct, Chronic pain syndrome G89.4 [facility] [address] [facility] [id number] [address] [place] [address] Oct, [address] [address] Oct, Chronic pain syndrome G89.[address] [address] Oct, Chronic pain syndrome G89.4 [facility] [address] [facility] [id number] [address] [place] [address] September, Chronic pain syndrome G89.4 and Primary insomnia F51.[address] [address] September, [address] [address] September, [facility] [address] [place] [address] September, Chronic pain syndrome G89.4 ; Morbid obesity E66.01 ; Failed back syndrome M96.1 and Low back pain radiating to both legs M54.5 [facility] [address] [facility] [id number] [address] [place] [address] September, Chronic pain syndrome G89.[address] [address] September, Chronic pain syndrome G89.[address] [address] September, Chronic pain syndrome G89.[address] [address] September, Chronic pain syndrome G89.[address] [address] Aug, [facility] [address] [facility] [id number] [address] [address] Aug, [address] [address] Aug, Primary insomnia F51.[address] [address] Aug, Chronic pain syndrome G89.4 and Primary insomnia F51.01 [facility] [address] [facility] [id number] [address] [place] [address] Aug, [address] [address] Aug, Chronic pain syndrome G89.[address] [address] Aug, Chronic pain syndrome G89.4 ; Morbid obe sity E66.01 and Left foot pain M79.[address] [address] Aug, [address] [address] Aug, [facility] [address] [place] [address] Aug, HTN (hypertension) 401.9 ; Morbid obesity E66.01 ; Essential (primary) hypertension I10 ; Low back pain radiating to both legs M54.5 ; Failed back syndrome M96.1 ; HLD (hyperlipidemia) E78.5 and Primary insomnia F51.[address] [address] Aug, [address] [address] Aug, [address] [address] Aug, [facility] [address] [place] [address] Jul, [facility] [address] [place] [address] Jul, [facility] [address] [place] [address] Jul, [facility] [address] [place] [address] Jul, [facility] [address] [place] [facility] [place] [address] Jun, [facility] [address] [place] [address] Jun, [facility] [address] [place] [address] May, [facility] [address] [id number] [address] [place] [address] Apr, [facility] [address] [id number] [address] [place] [address] Apr, [facility] [address] [id number] [address] [place] [address] Apr, [facility] [address] [id number] [address] [place] [address] Apr, [facility] [address] [facility] [id number] [address] [place] [address] Jan, [facility] [address] [id number] [address] [place] [address] Mar, [facility] [address] [id number] [address] [place] [address] Mar, IMMUNIZATIONS No Known Immunizations SOCIAL HISTORY Never Assessed REASON FOR VISIT Med refill PLAN OF CARE VITAL SIGNS MEDICATIONS Medication Instructions Dosage Frequency Start Date End Date Duration S letitia Levothyroxine Sodium 200 MCG Orally Once a day 1 tablet 24h Apr, 07 days Active Cyclobenzaprine HCl 10 MG Orally 3 times a day 1 tablet 8h May, 07 days Active Cymbalta 30 MG Orally 3 times a day 1 capsule 8h 07 days Active Levothyroxine Sodium 75 MCG Orally Once a day 1 tablet 24h 12 D 2017 07 days Active RESULTS No Results PROCEDURES No Known procedures INSTRUCTIONS MEDICATIONS ADMINISTERED No Known Medications MEDICAL (GENERAL) HISTORY Type Description Date Medical History htn Medical History HLD Medical History HYPOTHYROIDISM Medical History DDD Medical History RIGHT SIDED SCIATICA Medical History OSTEOARTHRITIS OF GLENOHUMERAL JOINT, LE FT Medical History CHRONIC BACK PAIN Medical History LOW BACK PAIN RADIATING TO BOTH LEGS Medical History PSEUDOMENINGOCELE Medical History CIGARETTE DEPENDENCE Medical History FAILED BACK SYNDROME Medical History LUMBAR POST-LAMINECTOMY SUNDROME Medical History TABACCO USE Medical History Disp fx of fourth metatarsal bone of right foot with routine healing Surgical History LUMBAR SPINE SURGERY Surgical History LUMBAR FUSION Surgical History CARPAL TUNNEL RELEASE Surgical History LUMBAR LAMINECTOMY Hospitalization History Surgery(s) only Hospitalization History childbirth only
--- OUTSIDE RECORDS SUMMARY | 2019-05-02 09:20 | XMS REPORT ---
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, Active 638096404 Problem Bladder retention R33.9 Apr, Active 579752501 Problem Failed back syndrome M96.1 Feb, Active 43572773 Problem HLD (hyperlipidemia) E78.5 Jan, Active 21562877 Problem Low back pain radiating to both legs M54.5 Apr, Active 188758477 Problem Greater trochanteric bursitis of right hip M70.61 Apr, Active 74702480 Problem Cigarette nicotine dependence, uncomplicated F1 7.210 Mar, Active 425485292 Problem Closed fracture of radius S52.90XA Oct, A ctive 829916787 Problem Lumbar post-laminectomy syndrome M96.1 Apr, Active 526611594 Problem Osteoarthritis of glenohumeral joint, left M19. 012 Apr, Active 476925303 Problem Chronic pain G89.29 Jan, Active 8242 3001 Problem Chronic back pain M54.9 Apr, Active 626314372 Problem HTN (hypertension) I10 Jan, Active 64440889 Problem Chronic pain syndrome G89.4 Active 451261149 Problem Right sided sciatica M54.31 Feb, Active 50073188 Problem Planovalgus deformity of foot, acquired M21.6X9 Oct, Active 592137948688590 Problem Left foot pain M79.672 Active 81880 2156598870 Problem DDD (degenerative disc disease), lumbar M51.36 Feb, Active 46138899 Problem Posterior tibialis tendon insufficiency M21.40 Oct, Active 78377380 Problem Disp fx of third metatarsal bone of left foot wi th routine healing S92.332D Jul, Active Problem Hypothyroidism E03.9 Jan, Active 40 862004 Problem Tobacco use Z72.0 Mar, Active 03630 3000 Problem Primary insomnia F51.01 Active 397 2004 Problem Essential (primary) hypertension I10 Active 66265296 ALLERGIES No Information ENCOUNTERS Encounter Location Date Diagnosis [facility] [address] [place] [address] Mar, [address] [address] Dec, [address] [address] Dec, Primary insomnia F51.[address] [address] Dec, Hypothyroidism E03.9 and HTN (hypertensi on) I10 [address] [address] Dec, Chronic pain syndrome G89.[address] [address] Dec, [facility] [address] [place] [address] Dec, Chronic pain syndrome G89.[address] [address] Nov, [facility] [address] [id number] [address] [place] [address] Nov, [address] [address] Nov, Chronic pain syndrome G89.[address] [address] Nov, [facility] [address] [facility] [id number] [address] [place] [address] Nov, [facility] [address] [place] [address] Nov, HTN (hypertension) I10 [facility] [address] [place] [address] Nov, Therapeutic drug monitoring Z51.81 ; Skin tear of left lower leg without complication, initial encounter S81.812A and Encounter for immunization Z23 [address] [address] Nov, Chronic pain syndrome G89.4 ; Primary in somnia F51.01 ; HTN (hypertension) I10 and Hypothyroidism E03.[address] [address] Nov, Chronic pain syndrome G89.[address] [address] Oct, Chronic pain syndrome G89.4 [facility] [address] [facility] [id number] [address] [place] [address] Oct, [address] [address] Oct, Chronic pain syndrome G89.[address] [address] Oct, Chronic pain syndrome G89.4 [facility] [address] [facility] [id number] [address] [place] [address] September, Chronic pain syndrome G89.4 and Primary insomnia F51.[address] [address] September, [address] [address] September, [facility] [address] [place] [address] September, Chronic pain syndrome G89.4 ; Morbid obesity E66.01 ; Failed back syndrome M96.1 and Low back pain radiating to both legs M54.5 [facility] [address] [facility] [id number] [address] [place] [address] September, Chronic pain syndrome G89.[address] [address] September, Chronic pain syndrome G89.[address] [address] September, Chronic pain syndrome G89.[address] [address] September, Chronic pain syndrome G89.[address] [address] Aug, [facility] [address] [facility] [id number] [address] [place] [address] Aug, [address] [address] Aug, Primary insomnia F51.[address] [address] Aug, Chronic pain syndrome G89.4 and Primary insomnia F51.01 [facility] [address] [facility] [id number] [address] [place] [address] Aug, [address] [address] Aug, Chronic pain syndrome G89.[address] [address] Aug, Chronic pain syndrome G89.4 ; Morbid obe sity E66.01 and Left foot pain M79.[address] [address] Aug, [address] [address] Aug, [facility] [address] [place] [address] Aug, HTN (hypertension) 401.9 ; Morbid obesity E66.01 ; Essential (primary) hypertension I10 ; Low back pain radiating to both legs M54.5 ; Failed back syndrome M96.1 ; HLD (hyperlipidemia) E78.5 and Primary insomnia F51.[address] [address] Aug, [address] [address] Aug, [address] [address] Aug, [facility] [address] [place] [address] Jul, [facility] [address] [place] [address] Jul, [facility] [address] [place] [address] Jul, [facility] [address] [place] [address] Jul, [facility] [address] [place] [facility] [place] [address] Jun, [facility] [address] [place] [address] Jun, [facility] [address] [place] [address] May, [facility] [address] [id number] [address] [place] [address] Apr, [facility] [address] [id number] [address] [place] [address] Apr, [facility] [address] [id number] [address] [place] [address] Apr, [facility] [address] [id number] [address] [place] [address] Apr, [facility] [address] [id number] [address] [place] [address] Jan, [facility] [address] [id number] [address] [place] [address] Mar, [facility] [address] [id number] [address] [place] [address] Mar, IMMUNIZATIONS No Known Immunizations SOCIAL HISTORY Never Assessed REASON FOR VISIT Refill request PLAN OF CARE VITAL SIGNS MEDICATIONS Unknown [...]
--- OUTSIDE RECORDS SUMMARY | 2019-05-02 09:21 | XMS REPORT | Continuity of Care Document ---
Author Organization Unknown Address Unknown Phone Unavailable Allergies Active Description Code Type Severity Reaction Onset Reported/Identified Relationship to Patient Clinical Status Yes Penicillins [id number] Drug Aller gy Unknown N/A 12/13/2008 Yes Sulfa (Sulfonamide Antibiotics) [id number] Drug Allergy Unknown N/A 009 Medications There is no data. Problems Date Dx Coded Attending Type Code Diagnosis Diagnosed By 03/29/2015 HAILEY MCGUIRE DO K Ot E03.9 HYPOTHYROIDISM, UNSPECIFIED 03/29/2015 MAYNOR DO HAILEY K Ot E66.9 OBESITY, UNSPECIFIED 03/29/2015 MCGUIRE DO HAILEY K Ot E78.5 HYPERLIPIDEMIA, UNSPECIFIED 03/29/2015 MAYNOR COKER HAILEY K Ot F17.21 0 NICOTINE DEPENDENCE, CIGARETTES, UNCOMPL 03/29/2015 MCGUIRE DO, HAILEY K Ot F41.9 ANXIETY DISORDER, UNSPECIFIED 03/29/2015 MCGUIRE , HAILEY K Ot G89.29 OTHER CHRONIC PAIN 03/29/2015 MAYNOR COKER HAILEY K Ot I10 ESSENTIAL (PRIMARY) HYPERTENSION 03/29/2015 MAYNOR COKER HAILEY K Ot R07.9 CHEST PAIN, UNSPECIFIED 03/29/2015 MCGUIRE DO HAILEY K Ot R09.02 HYPOXEMIA 03/29/2015 MAYNOR COKER HAILEY K Ot E03.9 03/29/2015 MCGUIRE DO HAILEY K Ot E66.9 03/29/2015 MCGUIRE DO, HAILEY K Ot E78.5 03/29/2015 MCGUIRE DO, HAILEY K Ot F17.21 0 03/29/2015 MCGUIRE DO HAILEY K Ot F41.9 03/29/2015 MCGUIRE DO HAILEY K Ot G89.29 03/29/2015 MCGUIRE DO HAILEY K Ot I10 03/29/2015 MCGUIRE DO HAILEY K Ot R07.9 03/29/2015 MCGUIRE DO HAILEY K Ot R09.02 11/22/2018 OSMAR TRINIDAD, ARIK Dent Ot E03.9 HYPOTHYROIDISM, UNSPECIFIED 11/22/2018 ARIK PRASAD MD Ot F17.210 NICOTINE DEPENDENCE, CIGARETTES, UNCOMPL 11/22/2018 ARIK PRASAD MD Ot F41.9 ANXIETY DISORDER, UNSPECIFIED 11/22/2018 ARIK PRASAD MD Ot I10 ESSENTIAL (PRIMARY) HYPERTENSION 11/22/2018 ARIK PRASAD MD Ot L03.116 CELLULITIS OF LEFT LOWER LIMB 11/22/2018 ARIK PRASAD MD Ot L03.211 CELLULITIS OF FACE 11/22/2018 ARIK PRASAD MD Ot R22.0 LOCALIZED SWELLING, MASS AND LUMP, HEAD 11/22/2018 ARIK PRASAD MD, Ot Z87.19 PERSONAL HISTORY OF OTHER DISEASES OF TH 11/22/2018 ARIK PRASAD MD, Ot Z88.0 ALLERGY STATUS TO PENICILLIN 11/22/2018 ARIK PRASAD MD, Ot Z88.2 ALLERGY STATUS TO SULFONAMIDES STATUS 11/22/2018 Ot 401.9 HYPE RTENSION NOS 11/25/2018 Ot 401.9 HYPE RTENSION NOS 11/26/2018 POPEYE OSHEA MD Ot E03 .9 HYPOTHYROIDISM, UNSPECIFIED 11/26/2018 POPEYE OSHEA MD Ot F17.210 NICOTINE DEPENDENCE, CIGARETTES, UNCOMPL 11/26/2018 POPEYE OSHEA MD Ot F41 .9 ANXIETY DISORDER, UNSPECIFIED 11/26/2018 POPEYE OSHEA MD Ot G89.29 OTHER CHRONIC PAIN 11/26/2018 POPEYE OSHEA MD Ot H02.843 EDEMA OF RIGHT EYE, UNSPECIFIED EYELID 11/26/2018 POPEYE OSHEA MD Ot H02.846 EDEMA OF LEFT EYE, UNSPECIFIED EYELID 11/26/2018 POPEYE OSHEA MD Ot I10 ESSENTIAL (PRIMARY) HYPERTENSION 11/26/2018 POPEYE OSHEA MD Ot K59.09 OTHER CONSTIPATION 11/26/2018 POPEYE OSHEA MD Ot L01.00 IMPETIGO, UNSPECIFIED 11/26/2018 POPEYE OSHEA MD Ot L03.213 PERIORBITAL CELLULITIS 11/26/2018 POPEYE OSHEA MD Ot M54 .9 DORSALGIA, UNSPECIFIED 11/26/2018 POPEYE OSHEA MD, Ot N39 .0 URINARY TRACT INFECTION, SITE NOT SPECIF 11/26/2018 POPEYE OSHEA MD Ot Z79.899 OTHER GROUP HOME (CURRENT) DRUG THERAPY 11/26/2018 POPEYE OSHEA MD, Ot Z82 .0 FAMILY HISTORY OF EPILEPSY AND OTH DIS O 11/26/2018 POPEYE OSHEA MD, Ot Z88 .0 ALLERGY STATUS TO PENICILLIN 11/26/2018 POPEYE OSHEA MD, Ot Z88 .2 ALLERGY STATUS TO SULFONAMIDES STATUS Procedures There is no data. Results Test Result Range CULTURE, URINE - 09/14/18 15:32 CULTURE, URINE, ROUTINE NRG PDM - PAIN MGMT (PROFILE 3 WITH CONFIRMA TION) - 11/09/18 17:37 Creatinine 29.4 mg/dL > or = 20.0 pH 6.90 4.5 - 9.0 Oxidant NEGATIVE [...] aOH alprazolam CONSISTENT NRG Alphahydroxymidazolam NEGATIVE ng/mL < 50 medMATCH aOH midazolam CONSISTENT NRG Alphahydroxytriazolam NEGATIVE ng/mL < 50 medMATCH aOH triazolam CONSISTENT NRG Aminoclonazepam NEGATIVE ng/mL <25 medMATCH Aminoclonazepam CONSISTENT NRG Hydroxyethylflurazepam NEGATIVE ng/mL <50 medMATCH OH,Et flurazepam CONSISTENT NR G Lorazepam NEGATIVE ng/mL <50 medMATCH Lorazepam CONSISTENT NRG Nordiazepam NEGATIVE ng/mL <50 medMATCH Nordiazepam CONSISTENT NRG Oxazepam NEGATIVE ng/mL <50 medMATCH Oxazepam CONSISTENT NRG Temazepam NEGATIVE ng/mL <50 medMATCH Temazepam CONSISTENT NRG Codeine NEGATIVE ng/mL <50 medMATCH Codeine CONSISTENT NRG Hydrocodone NEGATIVE ng/mL <50 medMATCH Hydrocodone CONSISTENT NRG Hydromorphone 73 ng/mL <50 medMATCH Hydromorphone CONSISTENT NRG Morphine >67532 ng/mL <50 medMATCH Morphine CONSISTENT NRG Norhydrocodone NEGATIVE ng/mL <50 medMATCH Norhydrocodone CONSISTENT NRG Prescribed Drug 2 MS Contin(TM) NRG Prescribed Drug 3 Hydrocodone NRG Prescribed Drug 4 Tramadol NRG Gram stain microscopy - 11/22/18 13:06 Gram stain microscopy Rare Gram positive cocci in clusters NRG Bacteria identification in wound by cult ure - 11/22/18 13:06 Bacteria identification in wound by culture [id number] NRG FREE TEXT EXTERNAL NO SUSCEPTIBILITY SET UP NRG QUANTITY OF GROWTH Moderate NRG FREE TEXT ENTRY 2 SEE COMMENT NRG Complete blood count (CBC) with automate d white blood cell (WBC) differential - 11/22/18 13:16 Blood leukocytes automated count (number/volume) 5.7 10*3/uL 4.3-11.0 Blood erythrocytes automated count (number/volume) 4.63 10*6/uL 4.35-5.85 Venous blood hemoglobin measurement (mass/volume) 12.6 g/dL 11.5-16.0 Blood hematocrit (volume fraction) 40 % 35-52 Automated erythrocyte mean corpuscular volume 86 [ foz_us] 80-99 Automated erythrocyte mean corpuscular h emoglobin (mass per erythrocyte) 27 pg 25-34 Automated erythrocyte mean corpuscular h emoglobin concentration measurement (mass/volume) 32 g/dL 32-36 Automated erythrocyte distribution width ratio 14. 7 % 10.0- 14.5 Automated blood platelet count [...] 10*3 1.0-4.0 Blood monocytes automated count (number/volume) 0. 4 10*3 0.0-1.0 Automated eosinophil count 0.2 10*3/uL 0 .0-0.3 Automated blood basophil count (count/volume) 0.1 10*3/uL 0.0-0.1 PT panel in platelet poor plasma by coag ulation assay - 11/22/18 13:16 Prothrombin time (PT) in platelet poor plasma by coagu lation assay 13.3 s 12.2-14.7 INR in platelet poor plasma or blood by coagulation as say 1.0 0.8-1.4 Activated partial thromboplastin time (a PTT) in platelet poor plasma bycoagulation assay - 11/22/18 13:16 Activated partial thromboplastin time (a PTT) in platelet poor plasma bycoagulation assay 39 s 24-35 Blood lactic acid measurement (moles/vol ume) - 11/22/18 13:16 Blood lactic acid measurement (moles/volume) 0.90 mmol/L 0.50-2.00 Comprehensive metabolic panel - 11/22/18 13:16 Serum or plasma sodium measurement (moles/volume) 141 mmol/L 135-145 Serum or plasma potassium measurement (moles/volume) 3.8 mmol/L 3.6-5.0 Serum or plasma chloride measurement (moles/volume) 104 mmol/L 98-107 Carbon dioxide 28 mmol/L 21-32 Serum or plasma anion gap determination (moles/volume) 9 mmol/L 5-14 Serum or plasma urea nitrogen measurement (mass/volume ) 12 mg/dL 7-18 Serum or plasma creatinine measurement (mass/volume) 0.70 mg/dL 0.60-1.30 Serum or plasma urea nitrogen/creatinine mass ratio 17 NRG Serum or plasma creatinine measurement w ith calculation of estimated glomerular filtration rate > NRG Serum or plasma glucose measurement (mass/volume) 81 mg/dL 70-105 Serum or plasma calcium measurement (mass/volume) 9.4 mg/dL 8.5-10.1 Serum or plasma total bilirubin measurement (mass/volu me) 0.3 mg/dL 0.1-1.0 Serum or plasma alkaline phosphatase melquiades surement (enzymatic activity/volume) 90 U/L 40-136 Serum or plasma aspartate aminotransfera se measurement (enzymatic activity/volume) 14 U/L 5-34 Serum or plasma alanine aminotransferase measurement (enzymatic activity/volume) 9 U/L 0-55 Serum or plasma protein measurement (mass/volume) 6.7 g/dL 6.4-8.2 Serum or plasma albumin measurement (mass/volume) 4.0 g/dL 3.2-4.5 CALCIUM CORRECTED 9.4 mg/dL 8.5-10.1 Serum or plasma C reactive protein measu rement (mass/volume) - 11/22/18 13:16 Serum or plasma C reactive protein measurement (mass/v olume) 1.89 mg/dL 0.00-0.50 THYROID STIMULATING HORMONE - 11/22/18 1 3:16 THYROID STIMULATING HORMONE 1.42 u[iU]/mL 0.35-4.94 Bacterial blood culture - 11/22/18 13:16 Bacterial blood culture NG NRG Complete urinalysis with reflex to cultu re - 11/22/18 13:35 Urine color determination YELLOW NRG Urine clarity determination SLIGHTLY CLOUDY NRG Urine pH measurement by test strip 6 5-9 Specific gravity of urine by test strip 1.020 1.016-1.022 Urine protein assay by test strip, semi-quantitative NEGATIVE NEGATIVE Urine glucose detection by automated test strip NE GATIVE NEGATIVE Erythrocytes detection in urine sediment by light micr oscopy NEGATIVE NEGATIVE Urine ketones detection by automated test strip NE GATIVE NEGATIVE Urine nitrite detection by test strip NEGATIVE NEGATIVE Urine total bilirubin detection by test strip NEGA TIVE NEGATIVE Urine urobilinogen measurement by automated test strip (mass/volume) NORMAL NORMAL Urine leukocyte esterase detection by dipstick 3+ NEGATIVE Automated urine sediment erythrocyte cou nt by microscopy (number/high power field) NONE NRG Automated urine sediment leukocyte count by microscopy (number/high power field) [HPF] NRG Bacteria detection in urine sediment by light microsco py MODERATE NRG Squamous epithelial cells detection in u rine sediment by light microscopy 10-25 NRG Crystals detection in urine sediment by light microsco py NONE NRG Casts detection in urine sediment by light microscopy NONE NRG Mucus detection in urine sediment by light microscopy NEGATIVE NRG Complete urinalysis with reflex to culture CULTURE PENDING NRG Bacterial urine culture - 11/22/18 13:35 Bacterial urine culture [id number] NRG COLONY COUNT >100,000/ML NRG FTX;REPORTABLE SUSCEPTIBILITY REPORTED 7-24-19, 13 05. NRG Dirithromycin susceptibility test by dis k diffusion - 11/22/18 13:35 Gentamicin susceptibility test by minimum inhibitory c oncentration <= NRG Trimethoprim/sulfamethoxazole susceptibi lity test by minimum inhibitoryconcentration <= NRG Levofloxacin susceptibility test by minimum inhibitory concentration <= NRG Ampicillin susceptibility test by minimum inhibitory c oncentration <= NRG Cefazolin susceptibility test by minimum inhibitory co ncentration <= NRG Ceftriaxone susceptibility test by minimum inhibitory concentration <= NRG Ciprofloxacin susceptibility test by minimum inhibitor y concentration <= NRG Meropenem susceptibility test by minimum inhibitory co ncentration <= NRG Nitrofurantoin susceptibility test by mi nimum inhibitory concentration 32 NRG Amoxicillin and clavulanate potassium susc EUGENIO <= NRG Bacterial blood culture - 11/22/18 13:45 Bacterial blood culture NG NRG Complete blood count (CBC) with automate d white blood cell (WBC) differential - 11/25/18 21:51 Blood leukocytes automated count (number/volume) 6.7 10*3/uL 4.3-11.0 Blood erythrocytes automated count (number/volume) 4.45 10*6/uL 4.35-5.85 Venous blood hemoglobin measurement (mass/volume) 12.1 g/dL 11.5-16.0 Blood hematocrit (volume fraction) 39 % 35-52 Automated erythrocyte mean corpuscular volume 87 [ foz_us] 80-99 Automated erythrocyte mean corpuscular h emoglobin (mass per erythrocyte) 27 pg 25-34 Automated erythrocyte mean corpuscular h emoglobin concentration measurement (mass/volume) 31 g/dL 32-36 Automated erythrocyte distribution width ratio 14. 9 % 10.0- 14.5 Automated blood platelet count (count/volume) 247 10*3/uL 130-400 Automated blood platelet mean volume measurement 10.5 [foz_us] 7.4-10.4 Automated blood neutrophils/100 leukocytes 58 % 42-75 Automated blood lymphocytes/100 leukocytes 28 % 12-44 Blood monocytes/100 leukocytes 10 % 0-12 Automated blood eosinophils/100 leukocytes 4 % 0-10 Automated blood basophils/100 leukocytes 1 % 0-10 Blood neutrophils automated count (number/volume) 3.9 10*3 1.8-7.8 Blood lymphocytes automated count (number/volume) 1.9 10*3 1.0-4.0 Blood monocytes automated count (number/volume) 0. 7 10*3 0.0-1.0 Automated eosinophil count 0.3 10*3/uL 0 .0-0.3 Automated blood basophil count (count/volume) 0.1 10*3/uL 0.0-0.1 Comprehensive metabolic panel - 11/25/18 21:51 Serum or plasma sodium measurement (moles/volume) 139 mmol/L 135-145 Serum or plasma potassium measurement (moles/volume) 4.7 mmol/L 3.6-5.0 Serum or plasma chloride measurement (moles/volume) 103 mmol/L 98-107 Carbon dioxide 25 mmol/L 21-32 Serum or plasma anion gap determination (moles/volume) 11 mmol/L 5-14 Serum or plasma urea nitrogen measurement (mass/volume ) 16 mg/dL 7-18 Serum or plasma creatinine measurement (mass/volume) 0.70 mg/dL 0.60-1.30 Serum or plasma urea nitrogen/creatinine mass ratio 23 NRG Serum or plasma creatinine measurement w ith calculation of estimated glomerular filtration rate > NRG Serum or plasma glucose measurement (mass/volume) 84 mg/dL 70-105 Serum or plasma calcium measurement (mass/volume) 9.0 mg/dL 8.5-10.1 Serum or plasma total bilirubin measurement (mass/volu me) 0.3 mg/dL 0.1-1.0 Serum or plasma alkaline phosphatase melquiades surement (enzymatic activity/volume) 82 U/L 40-136 Serum or plasma aspartate aminotransfera se measurement (enzymatic activity/volume) 14 U/L 5-34 Serum or plasma alanine aminotransferase measurement (enzymatic activity/volume) 6 U/L 0-55 Serum or plasma protein measurement (mass/volume) 6.5 g/dL 6.4-8.2 Serum or plasma albumin measurement (mass/volume) 3.8 g/dL 3.2-4.5 CALCIUM CORRECTED 9.2 mg/dL 8.5-10.1 Complete urinalysis with reflex to cultu re - 04/06/19 14:15 Urine color determination IOANA NRG Urine clarity determination TURBID NR G Urine pH measurement by test strip 7.0 5-9 Specific gravity of urine by test strip 1.025 1.016-1.022 Urine protein assay by test strip, semi-quantitative 2+ NEGATIVE Urine glucose detection by automated test strip NE GATIVE NEGATIVE Erythrocytes detection in urine sediment by light micr oscopy TRACE-I NEGATIVE Urine ketones detection by automated test strip TR GABBY NEGATIVE Urine nitrite detection by test strip NEGATIVE NEGATIVE Urine total bilirubin detection by test strip 1+ I [employer]=NEG NEGATIVE Urine urobilinogen measurement by automated test strip (mass/volume) 0.2 mg/dL < = 1.0 Urine leukocyte esterase detection by dipstick 2+ NEGATIVE Automated urine sediment erythrocyte cou nt by microscopy (number/high power field) [HPF] NRG Automated urine sediment leukocyte count by microscopy (number/high power field) [HPF] NRG Bacteria detection in urine sediment by light microsco py LARGE NRG Crystals detection in urine sediment by light microsco py NONE NRG Casts detection in urine sediment by light microscopy NONE NRG Mucus detection in urine sediment by light microscopy NEGATIVE NRG Complete urinalysis with reflex to culture CULTURE PENDING NRG Urine drug screening test - 04/06/19 14: 15 Urine phencyclidine detection by screening method NEGATIVE NEGATIVE Urine benzodiazepines detection by screening method NEGATIVE NEGATIVE Urine cocaine detection NEGATIVE NEGATI VE Urine amphetamines detection by screening method N EGATIVE NEGATIVE Urine methamphetamine detection by screening method NEGATIVE NEGATIVE Urine cannabinoids detection by screening method N EGATIVE NEGATIVE Urine opiates detection by screening method POSITI VE NEGATIVE Urine barbiturates detection NEGATIVE N EGATIVE Screening urine tricyclic antidepressants detection POSITIVE NEGATIVE Urine methadone detection by screening method NEGA TIVE NEGATIVE Urine oxycodone detection NEGATIVE NEGA TIVE Urine propoxyphene detection NEGATIVE N EGATIVE Bacterial urine culture - 04/06/19 14:25 Bacterial urine culture [id number] NRG COLONY COUNT >100,000/ML NRG FTX;REPORTABLE SUSCEPTIBILITY REPORTED 04-08-2019, 905 NRG Dirithromycin susceptibility test by dis k diffusion - 04/06/19 14:25 Gentamicin susceptibility test by minimum inhibitory c oncentration <= NRG Trimethoprim/sulfamethoxazole susceptibi lity test by minimum inhibitoryconcentration <= NRG Levofloxacin susceptibility test by minimum inhibitory concentration <= NRG Ampicillin susceptibility test by minimum inhibitory c oncentration <= NRG Cefazolin susceptibility test by minimum inhibitory co ncentration <= NRG Ceftriaxone susceptibility test by minimum inhibitory concentration <= NRG Ciprofloxacin susceptibility test by minimum inhibitor y concentration <= NRG Meropenem susceptibility test by minimum inhibitory co ncentration <= NRG Nitrofurantoin susceptibility test by tx nimum inhibitory concentration 32 NRG Amoxicillin and clavulanate potassium susc EUGENIO <= NRG Complete blood count (CBC) with automate d white blood cell (WBC) differential - 04/06/19 14:47 Blood leukocytes automated count (number/volume) 11.7 10*3/uL 4.3-11.0 Blood erythrocytes automated count (number/volume) 3.78 10*6/uL 4.35-5.85 Venous blood hemoglobin measurement (mass/volume) 10.2 g/dL 11.5-16.0 Blood hematocrit (volume fraction) 31 % 35-52 Automated erythrocyte mean corpuscular volume 81 [ foz_us] 80-99 Automated erythrocyte mean corpuscular h emoglobin (mass per erythrocyte) 27 pg 25-34 Automated erythrocyte mean corpuscular h emoglobin concentration measurement (mass/volume) 33 g/dL 32-36 Automated erythrocyte distribution width ratio 15. 5 % 10.0- 14.5 Automated blood platelet count (count/volume) 222 10*3/uL 130-400 Automated blood platelet mean volume measurement 10.4 [foz_us] 7.4-10.4 Automated blood neutrophils/100 leukocytes 77 % 42-75 Automated blood lymphocytes/100 leukocytes 10 % 12-44 Blood monocytes/100 leukocytes 12 % 0-12 Automated blood eosinophils/100 leukocytes 0 % 0-10 Automated blood basophils/100 leukocytes 0 % 0-10 Blood neutrophils automated count (number/volume) 9.1 10*3 1.8-7.8 Blood lymphocytes automated count (number/volume) 1.2 10*3 1.0-4.0 Blood monocytes automated count (number/volume) 1. 5 10*3 0.0-1.0 Automated eosinophil count 0.0 10*3/uL 0 .0-0.3 Automated blood basophil count (count/volume) 0.0 10*3/uL 0.0-0.1 Blood lactic acid measurement (moles/vol ume) - 04/06/19 14:47 Blood lactic acid measurement (moles/volume) 1.13 mmol/L 0.50-2.00 PT panel in platelet poor plasma by coag ulation assay - 04/06/19 14:47 Prothrombin time (PT) in platelet poor plasma by coagu lation assay 17.1 s 12.2-14.7 INR in platelet poor plasma or blood by coagulation as say 1.3 0.8-1.4 Activated partial thromboplastin time (a PTT) in platelet poor plasma bycoagulation assay - 04/06/19 14:47 Activated partial thromboplastin time (a PTT) in platelet poor plasma bycoagulation assay 39 s 24-35 Comprehensive metabolic panel - 04/06/19 14:47 Serum or plasma sodium measurement (moles/volume) 133 mmol/L 135-145 Serum or plasma potassium measurement (moles/volume) 5.1 mmol/L 3.6-5.0 Serum or plasma chloride measurement (moles/volume) 98 mmol/L 98-107 Carbon dioxide 13 mmol/L 21-32 Serum or plasma anion gap determination (moles/volume) 22 mmol/L 5-14 Serum or plasma urea nitrogen measurement (mass/volume ) 98 mg/dL 7-18 Serum or plasma creatinine measurement (mass/volume) 5.75 mg/dL 0.60-1.30 Serum or plasma urea nitrogen/creatinine mass ratio 17 NRG Serum or plasma creatinine measurement w ith calculation of estimated glomerular filtration rate 7 NRG Serum or plasma glucose measurement (mass/volume) 69 mg/dL 70-105 Serum or plasma calcium measurement (mass/volume) 7.5 mg/dL 8.5-10.1 Serum or plasma total bilirubin measurement (mass/volu me) 0.7 mg/dL 0.1-1.0 Serum or plasma alkaline phosphatase melquiades surement (enzymatic activity/volume) 87 U/L 40-136 Serum or plasma aspartate aminotransfera se measurement (enzymatic activity/volume) 194 U/L 5-34 Serum or plasma alanine aminotransferase measurement (enzymatic activity/volume) 62 U/L 0-55 Serum or plasma protein measurement (mass/volume) 5.6 g/dL 6.4-8.2 Serum or plasma albumin measurement (mass/volume) 3.1 g/dL 3.2-4.5 CALCIUM CORRECTED 8.2 mg/dL 8.5-10.1 Serum or plasma salicylates measurement (mass/volume) - 04/06/19 14:47 Serum or plasma salicylates measurement (mass/volume) < mg/dL 5.0-20.0 Serum or plasma acetaminophen measuremen t (mass/volume) - 04/06/19 14:47 Serum or plasma acetaminophen measurement (mass/volume ) < ug/mL 10-30 Serum or plasma ethanol measurement (mas s/volume) - 04/06/19 14:47 Serum or plasma ethanol measurement (mass/volume) < mg/dL <10 Bacterial blood culture - 04/06/19 14:47 Bacterial blood culture NG NRG Bacterial blood culture - 04/06/19 15:05 Bacterial blood culture NG NRG Arterial blood gas measurement - 9 15:18 Blood pCO2 43 mm[Hg] 35-45 Blood pO2 77 mm[Hg] 79-93 Arterial blood bicarbonate measurement (moles/volume) 13 mmol/L 23-27 Arterial blood base excess by calculation -14.3 mm ol/L -2.5-2.5 Arterial blood oxygen saturation measurement 91 % 94-100 * Inhaled oxygen flow rate 100% NRG Arterial blood pH measurement with patient temperature correction 7.12 7.37-7.43 Arterial blood carbon dioxide, total measurement (mole s/volume) 14.7 mmol/L 21.0-31.0 Body site RIGHT RADIAL NRG Assessment of wrist artery patency prior to arterial p uncture POSITIVE NRG Setting of ventilation mode YES NR G Measurement of body temperature 97.5 NRG Sputum Gram stain - 04/06/19 15:23 Sputum Gram stain NO BACTERIA SEEN NRG Bacterial sputum culture - 04/06/19 15:2 3 QUANTITY OF GROWTH . NRG Bacterial sputum culture USUAL RESP NRG Capillary blood glucose measurement by g lucometer (mass/volume) - 04/06/19 16:23 Capillary blood glucose measurement by glucometer (mas s/volume) 173 mg/dL 70-110 Encounters ACCT No. Visit Date/Time Discharge Status Pt. Type Provider Facility Loc./Unit Complaint [id number] 12/20/2018 14:40:00 12/20/2018 23:59: 59 [facility] Outpatient TRENA GREGORY [facility] [id number] 11/09/2018 17:40:00 Document Registration [id number] 09/14/2018 13:45:00 Document Registration [id number] 04/06/2019 13:41:00 019 17:42:00 DIS Emergency OSMAR TRINIDAD, ARIK Dent [facility] ER WEAKNESS [id number] 11/25/2018 21:52:00 019 15:30:00 DIS Inpatient DORIE TRINIDAD, POPEYE Welsh [facility] 4TH PRESEPTAL CELLULITIS,IMPETIGO,FAILURE OUTPATIENT T [id number] 11/22/2018 12:51:00 019 16:04:00 DIS Emergency OSMAR TRINIDAD, ARIK Dent [facility] ER FACIAL SWELLING ;OPEN WOUND;POSS INFECTION [id number] 03/28/2015 21:40:00 015 12:39:00 DIS Inpatient HAILEY MCGUIRE DO [facility] CSD CHEST PAIN/HYPOXIA [id number] 12/23/2013 12:29:00 Document Registration
== END 2019-04-06 17:42 | disposition short-term general hospital (02) ==
LOC: EDUNIT# 13:40 → ER 13:41
DX: N17.9 Acute kidney failure, unspecified (principal); I10 Essential (primary) hypertension; F17.210 Nicotine dependence, cigarettes, uncomplicated; E03.9 Hypothyroidism, unspecified; F41.9 Anxiety disorder, unspecified; Z87.442 Personal history of urinary calculi; Z88.0 Allergy status to penicillin; Z88.2 Allergy status to sulfonamides
CPT/HCPCS: 31500; 36415; 36600; 51702; 71045; 80053; 80306; 80320; 80329; 81000; 82805; 82962; 83605; 85025; 85610; 85730; 87040; 87070; 87077; 87088; 87186; 87205; 93005; 94640; 96361; 96365; 96366; 96367; 96375

== ENCOUNTER → 2019-05-18 | Outpatient (CLI) | payer MEDICARE ==
[2019-05-18 11:34] LABS: ALANINE AMINOTRANSFERASE 10 U/L (0-55); ALKALINE PHOSPHATASE 101 U/L (40-136); BILIRUBIN,TOTAL 0.3 MG/DL (0.1-1.0); BUN/CREATININE RATIO 15; CARBON DIOXIDE 22 MMOL/L (21-32); CHLORIDE 102 MMOL/L (98-107); CREATININE SERUM 0.66 MG/DL (0.60-1.30); GFR ESTIMATED > 60; GLUCOSE 80 MG/DL (70-105); POTASSIUM 3.7 MMOL/L (3.6-5.0); SODIUM 139 MMOL/L (135-145); TOTAL PROTEIN 6.9 GM/DL (6.4-8.2)
[2019-05-18 11:35] LABS: HEMATOCRIT 31 % (35-52); HEMOGLOBIN 9.5 G/DL (11.5-16.0); MEAN CORPUSCULAR HEMOGLOBIN 28 PG (25-34); MEAN CORPUSCULAR HGB CONC 31 G/DL (32-36); MEAN CORPUSCULAR VOLUME 91 FL (80-99); MEAN PLATELET VOLUME 9.5 FL (7.4-10.4); PLATELET COUNT 263 10^3/uL (130-400); RED CELL DISTRIBUTION WIDTH 18.1 % (10.0-14.5); WHITE BLOOD COUNT 5.6 10^3/uL (4.3-11.0)
[2019-05-18 11:36] LABS: BASOPHILS # (AUTO) 0.1 10^3/uL (0.0-0.1); BASOPHILS % (AUTO) 1 % (0-10); EOSINOPHILS # (AUTO) 0.2 10^3/uL (0.0-0.3); EOSINOPHILS % (AUTO) 3 % (0-10); LYMPHOCYTES # (AUTO) 2.5 X 10^3 (1.0-4.0); LYMPHOCYTES % (AUTO) 45 % (12-44); MONOCYTES # (AUTO) 0.4 X 10^3 (0.0-1.0); MONOCYTES % (AUTO) 7 % (0-12)
[2019-05-18 11:37] LABS: NEUTROPHILS # (AUTO) 2.5 X 10^3 (1.8-7.8); NEUTROPHILS % (AUTO) 44 % (42-75)
== END ==
LOC: LAB FS 10:46
PROVIDERS: ATTEND Family Medicine
DX: I10 Essential (primary) hypertension (principal); E03.9 Hypothyroidism, unspecified
CPT/HCPCS: 36415; 80053; 84443; 85025

== ENCOUNTER → 2021-05-30 | Outpatient (CLI) | payer MEDICARE ==
[~2021-05-30] MED LIST changes: +ACHYD1T PO; +CLIN-144 PO; -CLIN300C11 PO; +CYCL10TA25 PO; -CYCL10TA9 PO; -DOXY100C2 PO; +DOXY100C5 PO; -HYDR-3820 PO; -ROPI0.5T2 PO; +ROPI0.5T4 PO
== END ==
LOC: LABNPT 15:13
PROVIDERS: ATTEND Family Medicine
DX: U07.1 COVID-19 (principal)
CPT/HCPCS: 87635

== ENCOUNTER → 2021-11-25 | Outpatient (CLI) | payer MEDICARE ==
[~2021-11-25] MED LIST changes: +MORP60CA15 PO; -MORP60CA18 PO
--- NOTE | 2021-11-25 10:24 | Diagnostic Imaging Report ---
INDICATION: Left foot pain AP, oblique and lateral views of left foot were attempted. Study is somewhat limited due to positioning. There does appear to be marked degenerative change in the midfoot with pes planus deformity. There is also contraction of toes which limits evaluation. No definite fracture is identified. There is no evidence of periosteal reaction or bone destruction to indicate bone infection. 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 No definite acute osseous abnormality or unexpected radiopaque foreign object is identified. Dictated by: Dictated on workstation # [id number]
== END ==
LOC: RAD FS 09:54
PROVIDERS: ATTEND Nurse Practitioner
DX: M19.072 Primary osteoarthritis, left ankle and foot (principal)
CPT/HCPCS: 73630